=== PATIENT | female | born 1955 | race Caucasian/White ===

== ENCOUNTER 2024-02-15 07:24 | Inpatient (IN) | payer MEDICAID, OTHER ==
[~2024-02-15] VITALS: Ht 167.6 cm; Wt 95.5 kg
[~2024-02-15 07:24] MED LIST: LEVO25TA45
--- NOTE | 2024-02-15 07:33 | ECG ---
[facility] Test Date: 2024-02-15 Test Time: 07:29:23 Pat Name: CHASTITY PENA Department: ER Room: Gender: F Signal Operator: AKHIL : 1955 Requested By: MERCEDES BOSS Order Number: [id number] Reading MD: Branden Bradford Measurements Intervals [place] Rate: 53 P: 36 ND: 180 QRS: -62 QRSD: 92 T: 32 QT: 452 QTc: 425 Interpretive Statements Sinus rhythm Left anterior fascicular block Anterior infarct, old Electronically Signed On 02-15-2024 9:50:53 PDT by Branden Bradford Please click the below link to view image of tracing.
--- NOTE | 2024-02-15 07:34 | ED.PDOC ---
History of Present Illness HPI Comments 69Y F with PMHx thyroid disease and gastric bypass x20yrs ago presents to ED via EMS for chief complaint dizziness [id number] with vision changes. Pt states she has not moved much in 4 days and dizziness began today while showering. Pt says she "feels fuzzy". Pt is a poor historian. Per EMS, vital signs stable and BS 107 on scene. Pt denies taking HTN medications. 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 Family History Family History: Unknown Social History Smoker: Non-Smoker Alcohol: Denies ETOH Use Drugs: Denies Drug Use Lives In: Home Constitutional: denies: chills, diaphoresis, fatigue, fever, malaise, sweats, weakness, others EENTM: denies: blurred vision, double vision, ear bleeding, ear discharge, ear drainage, ear pain, ear ringing, eye pain, eye redness, hearing loss, mouth pain, mouth swelling, nasal discharge, nose bleeding, nose congestion, nose pain, photophobia, tearing, throat pain, throat swelling, voice changes, others Respiratory: denies: cough, hemoptysis, orthopnea, SOB at rest, shortness of breath, SOB with excertion, stridor, wheezing, others Cardiovascular: denies: chest pain, dizzy spells, diaphoresis, Dyspnea on exertion, edema, irregular heart beat, left arm pain, lightheadedness, palpitations, PND, syncope, others Gastrointestinal: denies: abdomen distended, abdominal pain, blood streaked bowels, constipated, diarrhea, dysphagia, difficulty swallowing, hematemesis, melena, nausea, poor appetite, poor fluid intake, rectal bleeding, rectal pain, vomiting, others Genitourinary: denies: abnormal vagina bleeding, burning, dyspareunia, dysuria, flank pain, frequency, hematuria, incontinence, pain, , vagina discharge, urgency, others Neurological: reports: dizziness; denies: fainting, headache, left sided numbness, left sided weakness, numbness, paresthesia, pre-existing deficit, right sided numbness, right sided weakness, seizure, speech problems, tingling, tremors, weakness, others Musculoskeletal: denies: back pain, gout, joint pain, joint swelling, muscle pain, muscle stiffness, neck pain, others Integumetry: denies: bruises, change in color, change in hair/nails, dryness, laceration, lesions, lumps, rash, wounds, others Allergic/Immunocompromised: denies: Difficulty Healing, Frequent Infections, Hives, Itching, others Hematologic/Lymphatic: denies: anemia, blood clots, easy bleeding, easy bruising, swollen glands, others Endocrine: denies: excessive hunger, excessive sweating, excessive thirst, excessive urination, flushing, intolerance to cold, intolerance to heat, unexplained weight gain, unexplained weight loss, others Psychiatric: denies: anxiety, bipolar disorder, depression, hopeless, panic disorder, schizophrenia, sleepless, suicidal, others All Other Systems: Reviewed and Negative Physical Exam General Appearance: Moderate Distress, Obese HEENT: Normal ENT Inspection, Pharynx Normal, TMs Normal Neck: Full Range of Motion, Non-Tender, Normal, Normal Inspection Respiratory: Chest Non-Tender, Lungs Clear, No Accessory Muscle Use, No Respiratory Distress, Normal Breath Sounds Cardiovascular: No Edema, No JVD, No Murmur, No Gallop, Normal Peripheral Pulses, Regular Rate/Rhythm Breast Exam: Deferred Gastrointestinal: No Organomegaly, Non Tender, No Pulsatile Mass, Normal Bowel Sounds, Soft Genitalia: Deferred Pelvic: Deferred Rectal: Deferred Extremities: No calf tenderness, Normal capillary refill, Normal inspection, Normal range of motion, Non-tender, No pedal edema Musculoskeletal : Apperance: Normal Neurologic: Alert, housekeeper nanny II-XII nml as Tested, No Motor Deficits, Normal Affect, Normal Mood, No Sensory Deficits Cerebellar Function: NOT DONE Reflexes: NOT DONE Skin: Dry, Normal Color, Warm Peripheral Pulses: 3+ Radial (R), 3+ Radial (L) Lymphatic: No Adenopathy Was a procedure done? Was a procedure done?: No Differential Dx Considerations may include: Autonomic disorder Electrolyte imbalance X-Ray, Labs, Meds, VS Vital Signs Date Time Temp Pulse Resp B/P (MAP) Pulse Ox O2 Delivery O2 Flow Rate FiO2 02/15/24 10:00 49 14 140/65 (90) 99 02/15/24 08:20 50 14 95 Room Air* 0 21 02/15/24 08:20 98.1 50 14 119/60 (79) 95 98.1 02/15/24 07:42 98.1 76 16 113/68 (83) 99 02/15/24 07:29 53 Lab Test 02/15/24 08:08 02/15/24 07:52 Range/Units White Blood Count 5.8 4.4-10.8 10^3/uL Red Blood Count 5.25 H 4.0-5.20 10^6/uL Hemoglobin 10.5 L 12.2-16.2 g/dL Hematocrit 35.6 L 36.0-46.0 % Mean Corpuscular Volume 67.8 L 80.0-100.0 fL Mean Corpuscular Hemoglobin 20.0 L 28.0-32.0 pg Mean Corpuscular Hemoglobin Concent 29.5 L 32.0-36.0 g/dL Red Cell Distribution Width 20.0 H 11.8-14.3 % Platelet Count 387 140-450 10^3/uL Mean Platelet Volume 8.1 6.9-10.8 fL Neutrophils (%) (Auto) 70.0 37.0-80.0 % Lymphocytes (%) (Auto) 22.5 10.0-50.0 % Monocytes (%) (Auto) 7.0 0.0-12.0 % Eosinophils (%) (Auto) 0.0 0.0-7.0 % Basophils (%) (Auto) 0.5 0.0-2.0 % Neutrophils # (Auto) 4.1 1.6-8.6 10 ^3/uL Lymphocytes # (Auto) 1.3 0.4-5.4 10 ^3/uL Monocytes # (Auto) 0.4 0-1.3 10 ^3/uL Eosinophils # (Auto) 0 0-0.8 10 ^3/uL Basophils # (Auto) 0 0-0.2 10 ^3/uL Nucleated Red Blood Cells 0.0 % Platelet Estimate Adequate Hypochromasia (manual) Marked Microcytosis Marked Sodium Level 143 136-145 mmol/L Potassium Level 3.9 3.5-5.1 mmol/L Chloride Level 108 H 98-107 mmol/L Carbon Dioxide Level 26 20-31 mmol/L Anion Gap 9 5-15 Blood Urea Nitrogen 12 9-23 mg/dL Creatinine 0.78 0.550-1.02 mg/dL Glomerular Filtration Rate Calc 82 >90 mL/min BUN/Creatinine Ratio 15.4 10.0-20.0 Serum Glucose 98 74-106 mg/dL Calcium Level 9.4 8.7-10.4 mg/dL Thyroid Stimulating Hormone (TSH) 20.67 H 0.55-4.78 uIU/mL Urine Color Light-orange Yellow Urine Clarity Turbid H Clear Urine pH 5.5 5.0-9.0 Urine Specific [place] 1.017 1.001-1.035 Urine Protein Trace H Negative Urine Ketones Negative Negative Urine Blood Negative Negative /uL Urine Nitrite 2+ H Negative Urine Bilirubin Negative Negative Urine Urobilinogen Normal Negative mg/dL Urine Leukocyte Esterase 3+ Negative /uL Urine RBC 4 0 - 4 /hpf Urine WBC 85 0 - 5 /hpf Urine Squamous Epithelial Cells Many <5 /hpf Urine Bacteria Few H None Seen /hpf Urine Mucus Few None Seen Urine Glucose Normal Normal mg/dL [place] [id number] Ph: [phone] DIAGNOSTIC IMAGING Diagnostic Imaging Report : [id number] Signed PATIENT: CHASTITY PENA ACCT: [id number] UNIT: [id number] : 1955 LOC: ER ROOM / BED: / AGE / SEX: 69 / F ADM STATUS: REG ER SERVICE [id number] ORDERING PHYSICIAN: MERCEDES BOSS MD PROCEDURE(s): HWOCT - HEAD WITHOUT CONTRAST REASON: tia ORDER NUMBER(s): [id number], ACCESSION NUMBER(s): [id number] EXAM: CT HEAD WITHOUT CONTRAST HISTORY: tia COMPARISON: None TECHNIQUE: Axial images were obtained and reformatted in coronal and sagittal planes. All CT scans at this medical facility are performed using dose modulation techniques as appropriate to a performed exam including the following: Automated exposure control was utilized; adjustment of the MA and/or KV according to patient size; and use of iterative reconstruction technique. CT Dose: CTDI volume is 55.14 mGy. Dose-length product is 976.43 mGy*cm FINDINGS: There is no evidence of acute intracranial hemorrhage, mass, mass effect midline shift. There is no hydrocephalus or extra-axial fluid collection. There are mild patchy hypodense areas in the supratentorial white matter likely related to chronic microvascular ischemic changes. Thompson-white matter differentiation is maintained.. The visualized paranasal sinuses and mastoid air cells are clear. The calvarium is intact. IMPRESSION: 1. No acute intracranial process. HS:Y ATED BY: YUNG ALONSO MD DICTATED DATE/TIME: 02/15/24 104 SIGNED BY: YUNG ALONSO MD SIGNED DATE/TIME: 02/15/24 104 CC: Patient alert. Complaining of dizziness. Vitals stable. Answering all questions. She is obese. EKG reviewed does not show any acute changes. Reviewed her previous visit for many years ago. Because of her age she will need further workup. Explained to the patient. Continue cardiac monitoring. Time of 1ST Reevaluation: 07:52 Reevaluation 1ST: Unchanged Patient Education/Counseling: Diagnosis, Treatment Family Education/Counseling: No Family Present Departure 1 Departure Time of Disposition: 07:37 Impression: Primary Impression: TIA (transient ischemic attack) Additional Impression: Autonomic disorder Disposition: 09 ADMITTED INPATIENT Admit to: Med Surg Condition: Guarded Critical Care Note Critical Care Time?: Yes (45 min-critical care time only) Stability Stability form required: No Heart Score Heart Score: Heart Score Response (Comments) Value History Slightly Suspicious 0 EKG Normal 0 Age >65 2 Risk Factors 1 or 2 risk factors 1 Troponin Normal limit 0 Total 3 I personally scribed for MERCEDES BOSS MD ([email or web address]) on 02/15/24 at 07:34. Electronically submitted by Sara Ayala ([employer]). I personally scribed for MERCEDES BOSS MD ([email or web address]) on 02/15/24 at 10:56. Electronically submitted by Sara Ayala ([employer]). MERCEDES BOSS MD Feb 15, 2024 07:34
[2024-02-15 08:20] VITALS: PULSE 50; RESP 14; O2SAT 95
[2024-02-15 08:28] LABS: Chloride 108 mmol/L (98-107); Potassium 3.9 mmol/L (3.5-5.1); Sodium 143 mmol/L (136-145)
[2024-02-15 08:29] LABS: Anion Gap 9 (5-15); Carbon Dioxide 26 mmol/L (20-31)
[2024-02-15 08:30] LABS: Calcium 9.4 mg/dL (8.7-10.4)
[2024-02-15 08:34] LABS: BUN/Creatinine Ratio 15.4 (10.0-20.0); Blood Urea Nitrogen 12 mg/dL (9-23); Glucose 98 mg/dL (74-106)
[2024-02-15 09:27] LABS: Basophils # (auto) 0 10 ^3/uL (0-0.2); Eosinophils # (auto) 0 10 ^3/uL (0-0.8); Hemoglobin 10.5 g/dL (12.2-16.2); Lymphocytes # (auto) 1.3 10 ^3/uL (0.4-5.4); Monocytes # (auto) 0.4 10 ^3/uL (0-1.3)
[2024-02-15 09:29] LABS: Basophils % (auto) 0.5 % (0.0-2.0); Hematocrit 35.6 % (36.0-46.0); Lymphocytes % (auto) 22.5 % (10.0-50.0); Mean Corpuscular Hgb Conc. 29.5 g/dL (32.0-36.0); Mean Corpuscular Volume 67.8 fL (80.0-100.0); Neutrophils # (auto) 4.1 10 ^3/uL (1.6-8.6); Platelet Count (auto) 387 10^3/uL (140-450); Red Blood Cells 5.25 10^6/uL (4.0-5.20); White Blood Cell 5.8 10^3/uL (4.4-10.8)
[2024-02-15 09:48] LABS: Hypochromia Marked; Platelet Estimate Adequate
[2024-02-15 09:57] LABS: Urine Bacteria FEW /hpf (None Seen); Urine Blood Negative /uL (Negative); Urine Clarity Turbid (Clear); Urine Color Light-Orange (Yellow); Urine Mucus FEW (None Seen); Urine Protein, UAD TRACE (Negative); Urine Specific Gravity 1.017 (1.001-1.035); Urine Urobilinogen Normal (Negative); Urine WBC 85 /hpf (0 - 5); Urine pH 5.5 (5.0-9.0)
--- NOTE | 2024-02-15 10:42 | DVH ---
EXAM: CT HEAD WITHOUT CONTRAST HISTORY: tia COMPARISON: None TECHNIQUE: Axial images were obtained and reformatted in coronal and sagittal planes. All CT scans at this medical facility are performed using dose modulation techniques as appropriate t o a performed exam including the following: Automated exposure control was utilized; adjustment of th e MA and/or KV according to patient size; and use of iterative reconstruction technique. CT Dose: CTDI volume is 55.14 mGy. Dose-length product is 976.43 mGy*cm FINDINGS: There is no evidence of acute intracranial hemorrhage, mass, mass effect midline shift. There is no h ydrocephalus or extra-axial fluid collection. There are mild patchy hypodense areas in the supratento rial white matter likely related to chronic microvascular ischemic changes. Thompson-white matter differe ntiation is maintained.. The visualized paranasal sinuses and mastoid air cells are clear. The calvarium is intact. IMPRESSION: 1. No acute intracranial process. HS:Y
[2024-02-15 11:57] LABS: Amphetamine Screen, Urine Neg (NEGATIVE)
[2024-02-15 11:58] LABS: Barbiturate Scree,Urine Neg (NEGATIVE); Benzodiazephine Screen, Urine Neg (NEGATIVE); Cannabinoid Screen, Urine Neg (NEGATIVE); Cocaine Screen, Urine Neg (NEGATIVE); Opiate Scree,Urine Neg (NEGATIVE); Phencyclidine Screen, Urine Neg (NEGATIVE)
[2024-02-15 12:26] LABS: COVID19 ANTIGEN SOFIA FIA NEGATIVE (NEGATIVE)
[2024-02-15 12:27] LABS: Rapid Influenza A Negative (Negative); Rapid Influenza B Negative (Negative)
[2024-02-15] MEDS ORDERED: ONDANSETRON HCL 4 MG/2 ML VIAL IV PRN (12:45)
[2024-02-15] MEDS ORDERED: MECLIZINE HCL 25 MG TAB PO PRN (12:45)
[2024-02-15] MEDS: THYROID 60 MG TAB PO SCH (13:41)
[2024-02-15] MEDS: cefTRIAXone 1GM/50ML D5W 50 ML IV SCH (13:47)
[2024-02-15] MEDS: SODIUM CHLORIDE 0.9% 1,000 ML IV ONE (13:47)
--- NOTE | 2024-02-15 13:57 | DVHHP2 ---
History of Present Illness Reason for Visit: Dizziness History of Present Illness 69-year-old female with history of thyroid disease, gastric bypass presented to the ED via EMS for chief complaint of dizziness and blurry vision during the dizziness. Patient states since she has not been feeling well, having muscle weakness, fatigue the last 4 days she has not been moving much and today while showering she felt dizzy. Patient is a poor historian, patient states she has many allergies to antibiotics and other medications but is not able to say exactly what the reaction is, patient tends to go off on a tangent and gets distracted while talking. Patient has tolerated Rocephin previously. Patient states she has not been taking any medications. Patient states that she stopped taking her thyroid medication, (Watkins thyroid), because she does not like the doctor who was prescribing them, and she also does not like taking medication. Patient states she has had bradycardia for many many years. Patient's flu and COVID were negative. Patient's urine did show she has a UTI. Patient's TSH was 20.67, restarted patient on Watkins thyroid. CT head was negative. Patient denies chest pain, headache, diaphoresis, shortness of breath, abdominal pain, no nausea, vomiting, fever, or chills endorsed by the patient. Patient was admitted for further evaluation medical management. Past Medical History Thyroid disease, gastric bypass, chronic fatigue syndrome Past Surgical History Gastric bypass Family History Reviewed noncontributory to the management of this case Smoke: No ALCOHOL: none Drugs: None Lives: with Family Review of Systems Constitutional: Yes: Malaise; No: Fever, Chills, Sweats, Weakness, Other Eyes: No: Pain, Vision change, Conjunctivae inflammation, Eyelid inflammation, Other, Redness ENT: No: Ear pain, Ear discharge, Nose pain, Nose discharge, Nose congestion, Mouth pain, Mouth swelling, Throat pain, Throat swelling, Other Respiratory: No: Cough, Dry, Shortness of breath, SOB with excertion, Wheezing, Hemoptysis, Pleuritic Pain, Sputum, Wheezing, Other Cardiovascular: Other (Dizziness); No: Chest Pain, Palpitations, Orthopnea, Paroxysmal Noc. Dyspnea, Edema, Lt Headedness Gastrointestinal: No: Nausea, Vomiting, Abdominal Pain, Diarrhea, Constipation, Melena, Hematochezia, Other Genitourinary: No Dysuria, No Frequency, No Incontinence, No Hematuria, No Retention, No Other Musculoskeletal: No: other, neck pain, shoulder pain, arm pain, back pain, hand pain, leg pain, foot pain Skin: No: Rash, Lesions, Jaundice, Bruising, Other Neurological: No: Weakness, Numbness, Incoordination, Change in speech, Confusion, Seizures, Other Allergies: Coded Allergies: Acetaminophen (Verified Allergy, Mild, 11/16/09) Hydrocodone (Verified Allergy, Mild, 11/16/09) Oxycodone (Verified Allergy, Mild, 11/16/09) Morphine (Verified Allergy, Unknown, 02/15/24) Medications Current Medications Medications Dose Ordered Sig/Amos Route Start Time Stop Time Status Last Admin Dose Admin Ondansetron HCl 4 mg Q4HP PRN IV 02/15/24 12:45 Meclizine HCl 12.5 mg [id number] PRN PO 02/15/24 12:45 Thyroid 120 mg QAM PO 02/15/24 13:30 Ceftriaxone Sodium 50 ml @ 100 mls/hr DAILY@09 IV 02/15/24 13:30 UNV Exam Vital Signs Vital Signs Date Time Temp Pulse Resp B/P (MAP) Pulse Ox O2 Delivery O2 Flow Rate FiO2 02/15/24 12:00 59 14 151/52 (85) 96 02/15/24 08:20 Room Air* 0 21 02/15/24 08:20 98.1 98.1 General Appearance: Alert, Oriented X3, Cooperative, No acute distress HEENT: Atraumatic, EOMI, Mucous membr. moist/pink Respiratory: Clear to auscultation, Normal air movement Cardiovascular: Regular rate, Normal S1, Normal S2, No murmurs Abdominal: Normal bowel sounds, Soft, No tenderness, No hepatospenomegaly, No masses Extremities: No clubbing, No cyanosis, No edema, Normal pulses, No tenderness/swelling Skin: No rashes, No breakdown, No significant lesion Neuro: Normal gait, Normal speech, Strength at 5/5 X4 ext, Normal tone, Sensation intact, Cranial nerves 3-12 NL, Reflexes 2+ Psych/Mental Status: Mental status NL, Mood NL Labs/Xrays Labs, imaging and ED notes reviewed Labs Test 02/15/24 10:51 02/15/24 10:06 02/15/24 08:08 02/15/24 07:52 Range/Units Influenza Type A Antigen Negative Negative Influenza Type B Antigen Negative Negative SARS-CoV-2 Antigen (Rapid) Negative NEGATIVE Urine Opiates Screen Neg NEGATIVE Urine Fentanyl Screen Neg NEGATIVE Urine Barbiturates Screen Neg NEGATIVE Urine Phencyclidine Screen Neg NEGATIVE Urine Amphetamines Screen Neg NEGATIVE Urine Benzodiazepines Screen Neg NEGATIVE Urine Cocaine Screen Neg NEGATIVE Urine Cannabinoids Screen Neg NEGATIVE White Blood Count 5.8 4.4-10.8 10^3/uL Red Blood Count 5.25 H 4.0-5.20 10^6/uL Hemoglobin 10.5 L 12.2-16.2 g/dL Hematocrit 35.6 L 36.0-46.0 % Mean Corpuscular Volume 67.8 L 80.0-100.0 fL Mean Corpuscular Hemoglobin 20.0 L 28.0-32.0 pg Mean Corpuscular Hemoglobin Concent 29.5 L 32.0-36.0 g/dL Red Cell Distribution Width 20.0 H 11.8-14.3 % Platelet Count 387 140-450 10^3/uL Mean Platelet Volume 8.1 6.9-10.8 fL Neutrophils (%) (Auto) 70.0 37.0-80.0 % Lymphocytes (%) (Auto) 22.5 10.0-50.0 % Monocytes (%) (Auto) 7.0 0.0-12.0 % Eosinophils (%) (Auto) 0.0 0.0-7.0 % Basophils (%) (Auto) 0.5 0.0-2.0 % Neutrophils # (Auto) 4.1 1.6-8.6 10 ^3/uL Lymphocytes # (Auto) 1.3 0.4-5.4 10 ^3/uL Monocytes # (Auto) 0.4 0-1.3 10 ^3/uL Eosinophils # (Auto) 0 0-0.8 10 ^3/uL Basophils # (Auto) 0 0-0.2 10 ^3/uL Nucleated Red Blood Cells 0.0 % Platelet Estimate Adequate Hypochromasia (manual) Marked Microcytosis Marked Sodium Level 143 136-145 mmol/L Potassium Level 3.9 3.5-5.1 mmol/L Chloride Level 108 H 98-107 mmol/L Carbon Dioxide Level 26 20-31 mmol/L Anion Gap 9 5-15 Blood Urea Nitrogen 12 9-23 mg/dL Creatinine 0.78 0.550-1.02 mg/dL Glomerular Filtration Rate Calc 82 >90 mL/min BUN/Creatinine Ratio 15.4 10.0-20.0 Serum Glucose 98 74-106 mg/dL Calcium Level 9.4 8.7-10.4 mg/dL Thyroid Stimulating Hormone (TSH) 20.67 H 0.55-4.78 uIU/mL Urine Color Light-orange Yellow Urine Clarity Turbid H Clear Urine pH 5.5 5.0-9.0 Urine Specific [place] 1.017 1.001-1.035 Urine Protein Trace H Negative Urine Ketones Negative Negative Urine Blood Negative Negative /uL Urine Nitrite 2+ H Negative Urine Bilirubin Negative Negative Urine Urobilinogen Normal Negative mg/dL Urine Leukocyte Esterase 3+ Negative /uL Urine RBC 4 0 - 4 /hpf Urine WBC 85 0 - 5 /hpf Urine Squamous Epithelial Cells Many <5 /hpf Urine Bacteria Few H None Seen /hpf Urine Mucus Few None Seen Urine Glucose Normal Normal mg/dL Assessment/Plan Assessment/Plan Bradycardia, symptomatic Admit to telemetry Consult cardiology Patient may also need outpatient sleep study, patient states her heart rate was dropping to the 30s in October when she was hospitalized [facility]. Hypothyroidism TSH 20.67 Restart Watkins thyroid Patient will need outpatient follow up to titrate dose up T3 and T4 pending UTI Started antibiotics Encourage hydration FEN/PPX GI prophylaxis not indicated VTE prophylaxis not indicated Regular diet IV fluids x1 L Plan discussed with: Patient My Orders Orders - ABDIRASHID GANDHI Procedure Category Date Status Time Admit ADMIT 02/15/24 Transmitted 12:43 Code Status CODE 02/15/24 Transmitted 12:43 Vital Signs DOMINIC 02/15/24 In Process 12:43 Review Orders With DOMINIC 02/15/24 In Process Adm. 12:43 Bedside Commode DOMINIC 02/15/24 In Process 12:43 Regular Diet DIET 02/15/24 Transmitted Lunch Notify Of Changes DOMINIC 02/15/24 In Process From Base 12:43 Advance Directive DOMINIC 02/15/24 In Process 12:43 Basic Metabolic Panel LAB 02/16/24 Verified 04:00 Complete Blood Count LAB 02/16/24 Verified 04:00 Patient Condition ORDERS 02/15/24 Transmitted 12:43 Allergies DOMINIC 02/15/24 In Process 12:43 Ondansetron Hcl PHA 02/15/24 In Process (Zofran) 12:45 Meclizine Tablet PHA 02/15/24 In Process (Antivert Tablet) 12:45 Thyroid (Watkins PHA 02/15/24 In Process Thyroid) 13:30 Free T3 LAB 02/15/24 In Process 13:28 Free T4 (Free LAB 02/15/24 In Process Thyroxine) 13:28 Ceftriaxone 1gm/50ml PHA 02/15/24 In Process D5w (Rocephin) 13:30 Sodium Chloride 0.9% PHA 02/15/24 In Process 13:30 Date of Service: Feb 15, 2024 Billing Provider: ABDIRASHID GANDHI Common Visit Codes: [id number] INP/OBS CARE (HIGH) ABDIRASHID GANDHI Feb 15, 2024 13:57
[2024-02-15 14:01] LABS: Free T3 2.86 pg/mL (2.3-4.2)
[2024-02-15 14:02] LABS: Free T4 (Free Thyroxine) 0.74 ng/dL (0.89-1.76)
--- NOTE | 2024-02-15 14:23 | DVH ---
CHEST RADIOGRAPH Indication:Shortness of breath Technique: Single frontal view of the chest was obtained COMPARISON: None FINDINGS: Lines and Tubes: None Lungs: Clear Pleura: No effusion. No pneumothorax. Cardiomediastinal contours: Unremarkable Bones: Unremarkable IMPRESSION: No acute disease.
[2024-02-15 15:41] LABS: Magnesium 2.1 mg/dL (1.6-2.6)
[2024-02-15 16:00] VITALS: BP 170/64; PULSE 49; RESP 18; TEMP 98.4; O2SAT 98
[2024-02-15] MEDS ORDERED: INFLUENZA TRIVALENT 2024-2025 0.5 ML INJ IM ONE (16:30)
[2024-02-15] MEDS ORDERED: hydrALAZINE HCL 20 MG/ML VL IV PRN (17:00)
--- NOTE | 2024-02-15 17:16 | DVHINCON2 ---
Date Seen: Feb 15, 2024 Referring Physician AKHIL Yan Reason for Consultation Symptomatic bradycardia History of Present Illness This is a 69-year-old female who presented to the emergency room via EMS with a chief complaint of dizziness today. The patient reports she was taking a shower at the onset of dizziness prompting her to call 911. Denies headache, blurry vision, or unilateral weakness. Denies chest pain, palpitations, diaphoresis, shortness of breath, or syncopal events. She underwent a 12 lead electrocardiogram revealing a sinus bradycardia rhythm with an associated left anterior fascicular block. There are no evidence of atrioventricular blocks. She has had a sustained sinus bradycardia rhythm during admission with the patient stating she has chronic asymptomatic bradycardia for the past 20 years. She was also found with a TSH level >20 uIU/mL stating she stopped taking her thyroid medication ([place]) approximately six months ago. Patient also reports a history of UTIs causing dizziness in the past. Reports decreased fluid intake during the past couple of weeks. Significant medical history includes chronic fatigue syndrome, Raynaud's disease, thyroid disease, mitral valve prolapse, UTIs, and morbid obesity. Past Medical History Past medical history reviewed. No other significant than mentioned above. Past Surgical History Gastric bypass, 2004 Tonsillectomy Adenectomy Family History: FH: obesity G8 FATHER Family History Family history reviewed. Social History Denies the use of illicit drugs, alcohol, or tobacco use. Allergies: Coded Allergies: Acetaminophen (Verified Allergy, Mild, 11/16/09) Hydrocodone (Verified Allergy, Mild, 11/16/09) Oxycodone (Verified Allergy, Mild, 11/16/09) Morphine (Verified Allergy, Unknown, 02/15/24) Home Meds Unable to Obtain Active Prescriptions or Reported Meds Home Meds Home medications reviewed. Current Medications Current Medications Medications (Trade) Dose Ordered Sig/Amos Route PRN Reason Start Time Stop Time Status Last Admin Ondansetron HCl (Zofran) 4 mg Q4HP PRN IV NAUSEA / VOMITING 02/15/24 12:45 Meclizine HCl (Antivert Tablet) 12.5 mg [id number] PRN PO DIZZINESS 02/15/24 12:45 Thyroid ([place] Thyroid) 120 mg QAM PO 02/15/24 13:30 02/15/24 13:52 DC 02/15/24 13:41 Ceftriaxone Sodium 50 ml @ 100 mls/hr DAILY@09 IV 02/15/24 13:30 02/15/24 13:47 Thyroid ([place] Thyroid) 30 mg QAM PO 02/16/24 07:00 Review of Systems Constitutional: No symptom reported Ears, Nose, & Throat: No symptom reported Eyes: No symptom reported Neurological: Dizziness Pulmonary/Respiratory: No symptom reported Cardiovascular: No symptom reported Gastrointestinal: No symptom reported Genitourinary: No symptom reported Musculoskeletal: No symptom reported Skin: No symptom reported Psychiatric: No symptom reported Endocrine: No symptom reported Hemotologic/Lymphatic: No symptom reported Vital Signs Vital Signs Date Time Temp Pulse Resp B/P (MAP) Pulse Ox O2 Delivery O2 Flow Rate FiO2 02/15/24 15:30 Room Air* 0 21 02/15/24 12:00 59 14 151/52 (85) 96 02/15/24 08:20 98.1 98.1 Physical Exam General Appearance: Cooperative. Well developed. Morbidly obese. In no acute distress Head Exam: Normal inspection Neck Exam: Normal inspection. Non-tender. Normal alignment Pulmonary/Respiratory: Chest non-tender. Clear bilateral breath sounds Cardiovascular/Chest: Regular rate and rhythm. S1, S2. Sinus bradycardia with LAFB. No murmurs. No JVD. Peripheral Pulses: 2+ Radial (R). 2+ Radial (L). 2+ Pedal (R). 2+ Pedal (L) Abdominal Exam: Normal bowel sounds. Soft. Nontender. No hepatospenomegaly. No masses Ankle Exam: Negative ankle edema Lower extremities: Negative lower extremity edema Neuro/Mental Status: A&O x4. Coherent Thoughts/Psych: Normal thought pattern. Appropriate mood and affect. Good judgement and insight Appearance: In no acute distress Skin Exam: Normal inspection. Normal color. Warm. Dry Labs/Diagnostic Data Labs Test 02/15/24 10:51 02/15/24 10:06 02/15/24 08:08 02/15/24 07:52 Range/Units Influenza Type A Antigen Negative Negative Influenza Type B Antigen Negative Negative SARS-CoV-2 Antigen (Rapid) Negative NEGATIVE Urine Opiates Screen Neg NEGATIVE Urine Fentanyl Screen Neg NEGATIVE Urine Barbiturates Screen Neg NEGATIVE Urine Phencyclidine Screen Neg NEGATIVE Urine Amphetamines Screen Neg NEGATIVE Urine Benzodiazepines Screen Neg NEGATIVE Urine Cocaine Screen Neg NEGATIVE Urine Cannabinoids Screen Neg NEGATIVE White Blood Count 5.8 4.4-10.8 10^3/uL Red Blood Count 5.25 H 4.0-5.20 10^6/uL Hemoglobin 10.5 L 12.2-16.2 g/dL Hematocrit 35.6 L 36.0-46.0 % Mean Corpuscular Volume 67.8 L 80.0-100.0 fL Mean Corpuscular Hemoglobin 20.0 L 28.0-32.0 pg Mean Corpuscular Hemoglobin Concent 29.5 L 32.0-36.0 g/dL Red Cell Distribution Width 20.0 H 11.8-14.3 % Platelet Count 387 140-450 10^3/uL Mean Platelet Volume 8.1 6.9-10.8 fL Neutrophils (%) (Auto) 70.0 37.0-80.0 % Lymphocytes (%) (Auto) 22.5 10.0-50.0 % Monocytes (%) (Auto) 7.0 0.0-12.0 % Eosinophils (%) (Auto) 0.0 0.0-7.0 % Basophils (%) (Auto) 0.5 0.0-2.0 % Neutrophils # (Auto) 4.1 1.6-8.6 10 ^3/uL Lymphocytes # (Auto) 1.3 0.4-5.4 10 ^3/uL Monocytes # (Auto) 0.4 0-1.3 10 ^3/uL Eosinophils # (Auto) 0 0-0.8 10 ^3/uL Basophils # (Auto) 0 0-0.2 10 ^3/uL Nucleated Red Blood Cells 0.0 % Platelet Estimate Adequate Hypochromasia (manual) Marked Microcytosis Marked Sodium Level 143 136-145 mmol/L Potassium Level 3.9 3.5-5.1 mmol/L Chloride Level 108 H 98-107 mmol/L Carbon Dioxide Level 26 20-31 mmol/L Anion Gap 9 5-15 Blood Urea Nitrogen 12 9-23 mg/dL Creatinine 0.78 0.550-1.02 mg/dL Glomerular Filtration Rate Calc 82 >90 mL/min BUN/Creatinine Ratio 15.4 10.0-20.0 Serum Glucose 98 74-106 mg/dL Hemoglobin A1c 5.1 <5.7 % A1C Calcium Level 9.4 8.7-10.4 mg/dL Magnesium Level 2.1 1.6-2.6 mg/dL B-Type Natriuretic Peptide 41.51 0-100 pg/mL Triglycerides Level 91 < 150 mg/dL Cholesterol Level 181 < 200 mg/dL LDL Cholesterol 117 H < 100 mg/dL HDL Cholesterol 54 40-59 mg/dL Thyroid Stimulating Hormone (TSH) 20.67 H 0.55-4.78 uIU/mL Free Thyroxine (T4) Calculated 0.74 L 0.89-1.76 ng/dL Free Triiodothyronine (T3) pg/mL 2.86 2.3-4.2 pg/mL Urine Color Light-orange Yellow Urine Clarity Turbid H Clear Urine pH 5.5 5.0-9.0 Urine Specific [place] 1.017 1.001-1.035 Urine Protein Trace H Negative Urine Ketones Negative Negative Urine Blood Negative Negative /uL Urine Nitrite 2+ H Negative Urine Bilirubin Negative Negative Urine Urobilinogen Normal Negative mg/dL Urine Leukocyte Esterase 3+ Negative /uL Urine RBC 4 0 - 4 /hpf Urine WBC 85 0 - 5 /hpf Urine Squamous Epithelial Cells Many <5 /hpf Urine Bacteria Few H None Seen /hpf Urine Mucus Few None Seen Urine Glucose Normal Normal mg/dL Assessment Dizziness in the setting of uncontrolled hypothyroidism/UTI Chronic asymptomatic bradycardia Rule out structural heart disease Hx mitral valve prolapse Medical noncompliance Suboptimal medical therapy Morbid obesity UTI Plan/Recommendation (Dr. Haley) Dizziness likely secondary to uncontrolled hypothyroidism and UTI. The patient reports chronic asymptomatic bradycardia for over 20 years. Doubt bradycardia as the culprit of symptoms. We will continue further cardiac evaluation with a transthoracic echocardiogram to rule out structural heart disease, bilateral carotid duplex, and orthostatic vital signs. In the setting of unremarkable results, there is no further cardiac workup indicated at this time. Continue ABX therapy and thyroid management per primary care team. Thank you for allowing us to participate in this patient's care. Please call if you have any questions or concerns. This medical document was created using an electronic medical record system with voice recognition software and computerized dictation system. Although this document has been carefully reviewed, there might still be some phonetic and typographical errors. Occasional wrong-word or ``sound-alike substitutions may have occurred due to the inherent limitations of voice recognition software. These areas are purely typographical due to imperfections of the software programs and do not reflect any compromise in the patient's medical care. Please read the chart carefully and recognize, using context, where these substitutions have occurred. Plan discussed with: Patient, Other Date of Service: Feb 15, 2024 Billing Provider: MARCELINO HALEY MD Cardiology Common Codes: [id number] INP/OBS CARE (High) SAURABH [employer] Feb 15, 2024 17:16
--- NOTE | 2024-02-15 17:53 | DVH ---
Carotid Duplex Date: 02/15/2024 05:05 PM Clinical History: Dizziness Comparison: None Technique: Duplex Doppler evaluation of the extracranial carotid and vertebral arteries including color Doppler and spectral/pulsed waveform analysis was performed. Findings: RIGHT SIDE: The peak systolic velocities are 66 cm/s in the distal CCA and 131 cm/s in the proximal ICA.The ICA/C CA ratio is 2. The external carotid artery is patent with peak systolic velocity of 87 cm/s proximally. There is appropriate antegrade flow in the right vertebral artery. LEFT SIDE: The peak systolic velocities are 82 cm/s in the distal CCA and 96 cm/s in the proximal ICA.. The ICA /CCA ratio is less than 2. The external carotid artery is patent with peak systolic velocity of 71 cm/s proximally. There is appropriate antegrade flow in the left vertebral artery. IMPRESSION: 1. 50-69% stenosis at the level of the right proximal ICA. 2. No hemodynamically significant stenosis noted in the left carotid system. 3. Reference: Radiology 2003; 229:[id number] HS:Y
[2024-02-15] MEDS: ENOXAPARIN SOD 40 MG/0.4 ML SYRINGE SC SCH (18:00)
[2024-02-15 18:30] VITALS: BP 135/63; PULSE 49
[2024-02-15 20:00] VITALS: PULSE 47; PULSE 69; RESP 18; O2SAT 97
[2024-02-15 21:00] VITALS: BP 100/50; PULSE 69; RESP 18; TEMP 97.8; O2SAT 97
[2024-02-16] VITALS (8 sets, daily range): BP systolic 0–172; BP diastolic 52–84; PULSE 48–83; RESP 16–18; TEMP 97.5–98.4; O2SAT 88–100
[2024-02-16 07:12] LABS: Basophils # (auto) 0 10 ^3/uL (0-0.2); Eosinophils # (auto) 0 10 ^3/uL (0-0.8); Red Cell Distribution Width 19.7 % (11.8-14.3)
[2024-02-16 07:14] LABS: Basophils % (auto) 0.6 % (0.0-2.0); Eosinophils % (auto) 0.1 % (0.0-7.0); Hematocrit 32.8 % (36.0-46.0); Hemoglobin 9.7 g/dL (12.2-16.2); Lymphocytes # (auto) 2.2 10 ^3/uL (0.4-5.4); Lymphocytes % (auto) 35.7 % (10.0-50.0); Mean Corpuscular Hemoglobin 20.6 pg (28.0-32.0); Mean Corpuscular Hgb Conc. 29.7 g/dL (32.0-36.0); Mean Corpuscular Volume 69.5 fL (80.0-100.0); Monocytes # (auto) 0.7 10 ^3/uL (0-1.3); Monocytes % (auto) 10.8 % (0.0-12.0); Neutrophils # (auto) 3.3 10 ^3/uL (1.6-8.6); Neutrophils % (auto) 52.8 % (37.0-80.0); Nucleated Red Blood Cells % 0.4 %; Platelet Count (auto) 277 10^3/uL (140-450); Red Blood Cells 4.72 10^6/uL (4.0-5.20); White Blood Cell 6.3 10^3/uL (4.4-10.8)
[2024-02-16 07:20] LABS: Chloride 112 mmol/L (98-107); Potassium 4.2 mmol/L (3.5-5.1); Sodium 143 mmol/L (136-145)
[2024-02-16 07:21] LABS: Anion Gap 5 (5-15); Carbon Dioxide 26 mmol/L (20-31)
[2024-02-16] MEDS: THYROID 60 MG TAB PO SCH (07:25)
[2024-02-16 07:26] LABS: BUN/Creatinine Ratio 18.9 (10.0-20.0); Blood Urea Nitrogen 14 mg/dL (9-23); Glucose 93 mg/dL (74-106)
[2024-02-16 08:27] LABS: Hypochromia Marked; Platelet Estimate Adequate
--- NOTE | 2024-02-16 13:33 | DVHSR ---
APPROVED REPORT EXAM: LIMITED Two-dimensional and M-mode echocardiogram with Doppler and color Doppler. Blood Pressure: 151/55 mmHg INDICATION Dizziness/bradycardia RISK FACTORS Obesity: Height: 5' 6", Weight: 200 DIMENSIONS LVDd4.3 (3.8-5.7cm)LA (2D)3.8 (1.9-4.0cm)Aortic Root2.7 (2.0-3.7cm) LVDs2.4 (2.5-4.0cm)LA (MM) (1.9-4.0cm)Aortic Cusp Exc1.5 (1.5-2.0cm) EF (%) 70.0 (55-70%)Rt. Atrium3.1 (1.9-4.0cm)Asc. Aorta cm IVSd0.9 (0.7-1.1cm)RV (D) (1.8-2.4cm) PWd1.0 (0.7-1.1cm) Mitral Valve MitralMitral Stenosis E wave0.80m/sMV Mean GR.mmHg A wave0.90m/sMV Peak GR.mmHg E/A ratio0.92D MVAcm2 Aortic Valve Aortic ValveAortic Stenosis V11.50m/Angie Mean GR.6mmHg V21.70m/Angie Peak GR.12mmHg LVOT Diameter1.9 (1.8-2.4cm)Doppler AVA2.50cm2 AI P 1/2 Ubpd143.48ms Other Information Quality : Technically LimitedRhythm : Technically limited study due to body habitus. Conclusion Normal left ventricular size and dimension. Normal left ventricular systolic function estimated ejec tion fraction 55%. there is a grade 1 diastolic dysfunction. Normal right ventricular size and dimension. Normal right ventricular systolic function. Normal biatrial size and dimension. Normal aortic valve structure and function. Normal mitral valve structure and function. Normal tricuspid valve structure and function. The pulmonary valve is grossly normal. No pericardial effusion.
--- NOTE | 2024-02-16 13:55 | DVHPN2 ---
Subjective The patient is seen and examined at bedside. No complaint today. Reviewed: Care Plan, H&P, Labs, Medications, Previous Orders, Radiology Changes from previous H/P or p: No Changes Eyes: No Pain, No Vision change, No Conjunctivae inflammation, No Eyelid inflammation, No Other, No Redness ENT: No Ear pain, No Ear discharge, No Nose pain, No Nose discharge, No Nose congestion, No Mouth pain, No Mouth swelling, No Throat pain, No Throat swelling, No Other Cardiovascular: No Chest Pain, No Palpitations, No Orthopnea, No Paroxysmal Noc. Dyspnea, No Edema, No Lt Headedness; Other (Dizziness) Respiratory: No Cough, No Dry, No Shortness of breath, No SOB with excertion, No Wheezing, No Hemoptysis, No Pleuritic Pain, No Sputum, No Other Gastrointestinal: No Nausea, No Vomiting, No Abdominal Pain, No Diarrhea, No Constipation, No Melena, No Hematochezia, No Other Genitourinary: No Dysuria, No Frequency, No Incontinence, No Hematuria, No Retention, No Other Musculoskeletal: No other, No neck pain, No shoulder pain, No arm pain, No back pain, No hand pain, No leg pain, No foot pain Skin: No Rash, No Lesions, No Jaundice, No Bruising, No Other Objective Vitals Vital Signs Date Time Temp Pulse Resp B/P (MAP) Pulse Ox O2 Delivery O2 Flow Rate FiO2 02/16/24 12:12 52 16 140/60 (86) 56 119/75 (90) 69 116/65 (82) 65 117/60 (79) 02/16/24 08:00 Room Air* 0 21 02/16/24 05:00 97.5 88 97.5 Intake/Output Intake and Output 02/16/24 07:00 Intake Total 1100 ml Balance 1100 ml Intake Oral 300 ml IV Total 800 ml # Voids 5 # Bowel Movements 1 General Appearance: Alert, Oriented X3, Cooperative, No acute distress HEENT: Atraumatic, PERRLA, EOMI, Mucous membr. moist/pink Neck: Supple Lungs: Clear to auscultation, Normal air movement Cardiovascular: Regular rate, Normal S1, Normal S2, No murmurs, Gallops, Rubs Abdomen: Normal bowel sounds, Soft, No tenderness Neuro: Cranial nerves 3-12 NL Psych/Mental Status: Mental status NL Medications Current Medications Medications Dose Ordered Sig/Amos Route Start Time Stop Time Status Last Admin Dose Admin Ondansetron HCl 4 mg Q4HP PRN IV 02/15/24 12:45 Meclizine HCl 12.5 mg [id number] PRN PO 02/15/24 12:45 Ceftriaxone Sodium 50 ml @ 100 mls/hr DAILY@09 IV 02/15/24 13:30 02/16/24 08:41 100 MLS/HR Thyroid 30 mg QAM PO 02/16/24 07:00 02/16/24 07:25 30 MG Enoxaparin Sodium 40 mg DAILY@1800 SC 02/15/24 18:00 02/15/24 18:00 40 MG Hydralazine HCl 10 mg Q6HP PRN IV 02/15/24 17:00 Laboratory Results Laboratory Tests 02/16/24 06:39 Chemistry Test 02/16/24 06:39 Calcium Level 9.0 mg/dL (8.7-10.4) Urinalysis Test 02/15/24 07:52 Urine Color Light-orange (Yellow) Urine Clarity Turbid (Clear) H Urine pH 5.5 (5.0-9.0) Urine Specific [place] 1.017 (1.001-1.035) Urine Protein Trace (Negative) H Urine Ketones Negative (Negative) Urine Blood Negative /uL (Negative) Urine Nitrite 2+ (Negative) H Urine Bilirubin Negative (Negative) Urine Urobilinogen Normal mg/dL (Negative) Urine Leukocyte Esterase 3+ /uL (Negative) Urine RBC 4 /hpf (0 - 4) Urine WBC 85 /hpf (0 - 5) Urine Squamous Epithelial Cells Many /hpf (<5) Urine Bacteria Few /hpf (None Seen) H Urine Mucus Few (None Seen) Urine Glucose Normal mg/dL (Normal) Labs and/or images reviewed: Labs reviewed by me Assessment/Plan Assessment/Plan Bradycardia, symptomatic Hypothyroidism UTI Continuing current management. 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 Regarding to her hypothyroidism we will restart her on armour thyroid. The patient will need to follow up outpatient to titrate the dosage. Waiting for T3 and T4. Continuing IV antibiotics. Plan discussed with: Patient Date of Service: Feb 16, 2024 Billing Provider: LUIS LIMON MD Common Visit Codes: [id number] INP/OBS CARE(HIGH) LUIS LIMON MD Feb 16, 2024 13:55
--- NOTE | 2024-02-16 15:27 | DVHPN2 ---
Consult Progress Note Subjective Patient reports: Feels better Review of Systems: NEURO:Normal (minor light headedness) Objective vital signs Vital Sign Date Time Temp Pulse Resp B/P (MAP) Pulse Ox O2 Delivery O2 Flow Rate FiO2 02/16/24 13:00 98.4 62 16 128/84 (99) 100 98.4 02/16/24 08:00 Room Air* 0 21 Total Intake and Output 02/15/24 02/15/24 02/16/24 15:00 23:00 07:00 Intake Total 50 ml 750 ml 300 ml Balance 50 ml 750 ml 300 ml medications Current Medications Medications Dose Ordered Sig/Amos Route Start Time Stop Time Status Last Admin Dose Admin Ondansetron HCl 4 mg Q4HP PRN IV 02/15/24 12:45 Meclizine HCl 12.5 mg [id number] PRN PO 02/15/24 12:45 Ceftriaxone Sodium 50 ml @ 100 mls/hr DAILY@09 IV 02/15/24 13:30 02/16/24 08:41 100 MLS/HR Thyroid 30 mg QAM PO 02/16/24 07:00 02/16/24 07:25 30 MG Enoxaparin Sodium 40 mg DAILY@1800 SC 02/15/24 18:00 02/15/24 18:00 40 MG Hydralazine HCl 10 mg Q6HP PRN IV 02/15/24 17:00 laboratory and microbiology Laboratory Tests 02/16/24 06:39 Test 02/16/24 06:39 Range/Units Serum Glucose 93 74-106 mg/dL Problem List/Assessment/Plan Problem List/Assessment/Plan Assessment Dizziness in the setting of uncontrolled hypothyroidism/UTI Chronic asymptomatic bradycardia Rule out structural heart disease Hx mitral valve prolapse Medical noncompliance Suboptimal medical therapy Morbid obesity UTI Plan/Recommendation (Dr. Pierre) Dizziness likely secondary to uncontrolled hypothyroidism and UTI. The patient reports chronic asymptomatic bradycardia for over 20 years. Doubt bradycardia as the culprit of symptoms. Echo with normal EF, no significant valvular structural abnormalities noted. Bilateral carotid duplex showing 50-69% stenosis right proximal ICA, recommend aspirin and statin. Negative orthostatic vital signs. Continue ABX therapy and thyroid management per primary care team. Thank you for allowing us to participate in this patient's care. Case discussed and plan coordinated with Dr. Pierre. Please call if you have any questions or concerns. will sign off This medical document was created using an electronic medical record system with voice recognition software and computerized dictation system. Although this document has been carefully reviewed, there might still be some phonetic and typographical errors. Occasional wrong-word or ``sound-alike substitutions may have occurred due to the inherent limitations of voice recognition software. These areas are purely typographical due to imperfections of the software programs and do not reflect any compromise in the patient's medical care. Please read the chart carefully and recognize, using context, where these substitutions have occurred. Plan discussed with: Patient, Other Plan discussed with: Patient Date of Service: Feb 16, 2024 Billing Provider: MARCELINO PIERRE MD Common Visit Codes: [id number] INP/OBS CARE(HIGH) EDGARD SILVESTRE [facility] Feb 16, 2024 15:27
[2024-02-17] VITALS (8 sets, daily range): BP systolic 0–146; BP diastolic 55–83; PULSE 17–72; RESP 17–95; TEMP 96.8–98.4; O2SAT 90–100
[2024-02-17] MEDS ORDERED: THYR60TA PO (08:01)
--- NOTE | 2024-02-17 13:35 | DVHPN2 ---
Subjective The patient is seen and examined at bedside. Today the patient feels dizzy. Heart rate is low in between 30-50 Reviewed: Care Plan, H&P, Labs, Medications, Previous Orders, Radiology Changes from previous H/P or p: No Changes Eyes: No Pain, No Vision change, No Conjunctivae inflammation, No Eyelid inflammation, No Other, No Redness ENT: No Ear pain, No Ear discharge, No Nose pain, No Nose discharge, No Nose congestion, No Mouth pain, No Mouth swelling, No Throat pain, No Throat swelling, No Other Cardiovascular: No Chest Pain, No Palpitations, No Orthopnea, No Paroxysmal Noc. Dyspnea, No Edema, No Lt Headedness; Other (Dizziness) Respiratory: No Cough, No Dry, No Shortness of breath, No SOB with excertion, No Wheezing, No Hemoptysis, No Pleuritic Pain, No Sputum, No Other Gastrointestinal: No Nausea, No Vomiting, No Abdominal Pain, No Diarrhea, No Constipation, No Melena, No Hematochezia, No Other Genitourinary: No Dysuria, No Frequency, No Incontinence, No Hematuria, No Retention, No Other Musculoskeletal: No other, No neck pain, No shoulder pain, No arm pain, No back pain, No hand pain, No leg pain, No foot pain Skin: No Rash, No Lesions, No Jaundice, No Bruising, No Other Objective Vitals Vital Signs Date Time Temp Pulse Resp B/P (MAP) Pulse Ox O2 Delivery O2 Flow Rate FiO2 02/17/24 09:00 96.8 56 95 99/61 (74) 95 96.8 02/16/24 08:00 Room Air* 0 21 Intake/Output Intake and Output 02/17/24 07:00 Intake Total 1975 ml Output Total 700 ml Balance 1275 ml Intake Oral 1925 ml IV Total 50 ml Output Urine Total 700 ml # Voids 2 General Appearance: Alert, Oriented X3, Cooperative, No acute distress HEENT: Atraumatic, PERRLA, EOMI, Mucous membr. moist/pink Neck: Supple Lungs: Clear to auscultation, Normal air movement Cardiovascular: Regular rate, Normal S1, Normal S2, No murmurs, Gallops, Rubs Abdomen: Normal bowel sounds, Soft, No tenderness Neuro: Cranial nerves 3-12 NL Psych/Mental Status: Mental status NL Medications Current Medications Medications Dose Ordered Sig/Amos Route Start Time Stop Time Status Last Admin Dose Admin Ondansetron HCl 4 mg Q4HP PRN IV 02/15/24 12:45 Meclizine HCl 12.5 mg [id number] PRN PO 02/15/24 12:45 Ceftriaxone Sodium 50 ml @ 100 mls/hr DAILY@09 IV 02/15/24 13:30 02/16/24 08:41 100 MLS/HR Thyroid 30 mg QAM PO 02/16/24 07:00 02/17/24 06:45 30 MG Enoxaparin Sodium 40 mg DAILY@1800 SC 02/15/24 18:00 02/16/24 17:51 40 MG Hydralazine HCl 10 mg Q6HP PRN IV 02/15/24 17:00 Laboratory Results Laboratory Tests 02/16/24 06:39 Urinalysis Test 02/15/24 07:52 Urine Color Light-orange (Yellow) Urine Clarity Turbid (Clear) H Urine pH 5.5 (5.0-9.0) Urine Specific [place] 1.017 (1.001-1.035) Urine Protein Trace (Negative) H Urine Ketones Negative (Negative) Urine Blood Negative /uL (Negative) Urine Nitrite 2+ (Negative) H Urine Bilirubin Negative (Negative) Urine Urobilinogen Normal mg/dL (Negative) Urine Leukocyte Esterase 3+ /uL (Negative) Urine RBC 4 /hpf (0 - 4) Urine WBC 85 /hpf (0 - 5) Urine Squamous Epithelial Cells Many /hpf (<5) Urine Bacteria Few /hpf (None Seen) H Urine Mucus Few (None Seen) Urine Glucose Normal mg/dL (Normal) Labs and/or images reviewed: Labs reviewed by me Assessment/Plan Assessment/Plan Bradycardia, symptomatic Hypothyroidism UTI Continuing current management. Per line puller's her bradycardia due to her severe hypothyroidism. Continuing to monitor her heart rate. Regarding to her hypothyroidism we will restart her on armour thyroid. I will increase the dosage to 120 mg per day. Patient said that is how much she take at home however she ran out of her medication for three months. She had not take her medication for three months. The patient will need to follow up outpatient to titrate the dosage. Continuing IV antibiotics. Plan discussed with: Patient Date of Service: Feb 17, 2024 Billing Provider: LUIS LIMON MD Common Visit Codes: [id number] INP/OBS CARE(HIGH) LUIS LIMON MD Feb 17, 2024 13:35
--- NOTE | 2024-02-17 13:38 | DVHPN2 ---
Eyes: No Pain, No Vision change, No Conjunctivae inflammation, No Eyelid inflammation, No Other, No Redness ENT: No Ear pain, No Ear discharge, No Nose pain, No Nose discharge, No Nose congestion, No Mouth pain, No Mouth swelling, No Throat pain, No Throat swelling, No Other Cardiovascular: No Chest Pain, No Palpitations, No Orthopnea, No Paroxysmal Noc. Dyspnea, No Edema, No Lt Headedness; Other (Dizziness) Respiratory: No Cough, No Dry, No Shortness of breath, No SOB with excertion, No Wheezing, No Hemoptysis, No Pleuritic Pain, No Sputum, No Other Gastrointestinal: No Nausea, No Vomiting, No Abdominal Pain, No Diarrhea, No Constipation, No Melena, No Hematochezia, No Other Genitourinary: No Dysuria, No Frequency, No Incontinence, No Hematuria, No Retention, No Other Musculoskeletal: No other, No neck pain, No shoulder pain, No arm pain, No back pain, No hand pain, No leg pain, No foot pain Skin: No Rash, No Lesions, No Jaundice, No Bruising, No Other Objective Vitals Vital Signs Date Time Temp Pulse Resp B/P (MAP) Pulse Ox O2 Delivery O2 Flow Rate FiO2 02/17/24 09:00 96.8 56 95 99/61 (74) 95 96.8 02/16/24 08:00 Room Air* 0 21 Intake/Output Intake and Output 02/17/24 07:00 Intake Total 1975 ml Output Total 700 ml Balance 1275 ml Intake Oral 1925 ml IV Total 50 ml Output Urine Total 700 ml # Voids 2 Medications Current Medications Medications Dose Ordered Sig/Amos Route Start Time Stop Time Status Last Admin Dose Admin Ondansetron HCl 4 mg Q4HP PRN IV 02/15/24 12:45 Meclizine HCl 12.5 mg [id number] PRN PO 02/15/24 12:45 Ceftriaxone Sodium 50 ml @ 100 mls/hr DAILY@09 IV 02/15/24 13:30 02/16/24 08:41 100 MLS/HR Thyroid 30 mg QAM PO 02/16/24 07:00 02/17/24 06:45 30 MG Enoxaparin Sodium 40 mg DAILY@1800 SC 02/15/24 18:00 02/16/24 17:51 40 MG Hydralazine HCl 10 mg Q6HP PRN IV 02/15/24 17:00 Laboratory Results Laboratory Tests 02/16/24 06:39 Urinalysis Test 02/15/24 07:52 Urine Color Light-orange (Yellow) Urine Clarity Turbid (Clear) H Urine pH 5.5 (5.0-9.0) Urine Specific [place] 1.017 (1.001-1.035) Urine Protein Trace (Negative) H Urine Ketones Negative (Negative) Urine Blood Negative /uL (Negative) Urine Nitrite 2+ (Negative) H Urine Bilirubin Negative (Negative) Urine Urobilinogen Normal mg/dL (Negative) Urine Leukocyte Esterase 3+ /uL (Negative) Urine RBC 4 /hpf (0 - 4) Urine WBC 85 /hpf (0 - 5) Urine Squamous Epithelial Cells Many /hpf (<5) Urine Bacteria Few /hpf (None Seen) H Urine Mucus Few (None Seen) Urine Glucose Normal mg/dL (Normal) LUIS LIMON MD Feb 17, 2024 13:37
[2024-02-17] MEDS: THYROID 60 MG TAB PO SCH (13:45)
[2024-02-18] VITALS (9 sets, daily range): BP systolic 127–148; BP diastolic 53–71; PULSE 52–60; RESP 17–20; TEMP 36.8; O2SAT 97–100
[2024-02-18] MEDS: THYROID 60 MG TAB PO SCH (07:30)
[2024-02-18 07:31] LABS: Basophils # (auto) 0 10 ^3/uL (0-0.2); Eosinophils # (auto) 0 10 ^3/uL (0-0.8); Hemoglobin 10.2 g/dL (12.2-16.2); Lymphocytes # (auto) 1.2 10 ^3/uL (0.4-5.4); Monocytes # (auto) 0.3 10 ^3/uL (0-1.3); Monocytes % (auto) 7.2 % (0.0-12.0); Neutrophils # (auto) 2.7 10 ^3/uL (1.6-8.6); White Blood Cell 4.2 10^3/uL (4.4-10.8)
[2024-02-18 07:35] LABS: Basophils % (auto) 0.4 % (0.0-2.0); Hematocrit 34.3 % (36.0-46.0); Lymphocytes % (auto) 28.8 % (10.0-50.0); Mean Corpuscular Hemoglobin 20.5 pg (28.0-32.0); Mean Corpuscular Hgb Conc. 29.9 g/dL (32.0-36.0); Mean Corpuscular Volume 68.6 fL (80.0-100.0); Neutrophils % (auto) 63.6 % (37.0-80.0); Nucleated Red Blood Cells % 0.1 %; Platelet Count (auto) 364 10^3/uL (140-450)
[2024-02-18 07:53] LABS: Chloride 114 mmol/L (98-107); Potassium 4.1 mmol/L (3.5-5.1); Sodium 145 mmol/L (136-145)
[2024-02-18 07:54] LABS: Anion Gap 6 (5-15); Calcium 9.4 mg/dL (8.7-10.4); Carbon Dioxide 25 mmol/L (20-31)
[2024-02-18 07:59] LABS: BUN/Creatinine Ratio 23.9 (10.0-20.0); Blood Urea Nitrogen 17 mg/dL (9-23); Glucose 85 mg/dL (74-106)
[2024-02-18] MEDS ORDERED: THYR60TA PO (11:42)
--- NOTE | 2024-02-18 13:06 | DVHDS2 ---
Discharge Summary Date of Admission Feb 15, 2024 at 12:43 Date of Discharge: Feb 18, 2024 Admitting Diagnosis Symptomatic bradycardia Labs/Diagnostic Data: Laboratory Results Test 02/18/24 06:40 02/16/24 06:39 02/15/24 10:51 02/15/24 10:06 White Blood Count 4.2 10^3/uL (4.4-10.8) Red Blood Count 5.00 10^6/uL (4.0-5.20) Hemoglobin 10.2 g/dL (12.2-16.2) Hematocrit 34.3 % (36.0-46.0) Mean Corpuscular Volume 68.6 fL (80.0-100.0) Mean Corpuscular Hemoglobin 20.5 pg (28.0-32.0) Mean Corpuscular Hemoglobin Concent 29.9 g/dL (32.0-36.0) Red Cell Distribution Width 20.0 % (11.8-14.3) Platelet Count 364 10^3/uL (140-450) Mean Platelet Volume 6.9 fL (6.9-10.8) Neutrophils (%) (Auto) 63.6 % (37.0-80.0) Lymphocytes (%) (Auto) 28.8 % (10.0-50.0) Monocytes (%) (Auto) 7.2 % (0.0-12.0) Eosinophils (%) (Auto) 0.0 % (0.0-7.0) Basophils (%) (Auto) 0.4 % (0.0-2.0) Neutrophils # (Auto) 2.7 10 ^3/uL (1.6-8.6) Lymphocytes # (Auto) 1.2 10 ^3/uL (0.4-5.4) Monocytes # (Auto) 0.3 10 ^3/uL (0-1.3) Eosinophils # (Auto) 0 10 ^3/uL (0-0.8) Basophils # (Auto) 0 10 ^3/uL (0-0.2) Nucleated Red Blood Cells 0.1 % Sodium Level 145 mmol/L (136-145) Potassium Level 4.1 mmol/L (3.5-5.1) Chloride Level 114 mmol/L (98-107) Carbon Dioxide Level 25 mmol/L (20-31) Anion Gap 6 (5-15) Blood Urea Nitrogen 17 mg/dL (9-23) Creatinine 0.71 mg/dL (0.550-1.02) Glomerular Filtration Rate Calc 92 mL/min (>90) BUN/Creatinine Ratio 23.9 (10.0-20.0) Serum Glucose 85 mg/dL (74-106) Calcium Level 9.4 mg/dL (8.7-10.4) Thyroid Stimulating Hormone (TSH) 6.80 uIU/mL (0.55-4.78) Free Thyroxine (T4) Calculated 0.76 ng/dL (0.89-1.76) Platelet Estimate Adequate Hypochromasia (manual) Marked Microcytosis Marked Influenza Type A Antigen Negative (Negative) Influenza Type B Antigen Negative (Negative) SARS-CoV-2 Antigen (Rapid) Negative (NEGATIVE) Urine Opiates Screen Neg (NEGATIVE) Urine Fentanyl Screen Neg (NEGATIVE) Urine Barbiturates Screen Neg (NEGATIVE) Urine Phencyclidine Screen Neg (NEGATIVE) Urine Amphetamines Screen Neg (NEGATIVE) Urine Benzodiazepines Screen Neg (NEGATIVE) Urine Cocaine Screen Neg (NEGATIVE) Urine Cannabinoids Screen Neg (NEGATIVE) Test 02/15/24 08:08 02/15/24 07:52 Hemoglobin A1c 5.1 % A1C (<5.7) Magnesium Level 2.1 mg/dL (1.6-2.6) B-Type Natriuretic Peptide 41.51 pg/mL (0-100) Triglycerides Level 91 mg/dL (< 150) Cholesterol Level 181 mg/dL (< 200) LDL Cholesterol 117 mg/dL (< 100) HDL Cholesterol 54 mg/dL (40-59) Free Triiodothyronine (T3) pg/mL 2.86 pg/mL (2.3-4.2) Urine Color Light-orange (Yellow) Urine Clarity Turbid (Clear) Urine pH 5.5 (5.0-9.0) Urine Specific [place] 1.017 (1.001-1.035) Urine Protein Trace (Negative) Urine Ketones Negative (Negative) Urine Blood Negative /uL (Negative) Urine Nitrite 2+ (Negative) Urine Bilirubin Negative (Negative) Urine Urobilinogen Normal mg/dL (Negative) Urine Leukocyte Esterase 3+ /uL (Negative) Urine RBC 4 /hpf (0 - 4) Urine WBC 85 /hpf (0 - 5) Urine Squamous Epithelial Cells Many /hpf (<5) Urine Bacteria Few /hpf (None Seen) Urine Mucus Few (None Seen) Urine Glucose Normal mg/dL (Normal) Other Laboratory Tests 02/18/24 06:40 Brief Hx & Hospital Course: History of Present Illness 69-year-old female with history of thyroid disease, gastric bypass presented to the ED via EMS for chief complaint of dizziness and blurry vision during the dizziness. Patient states since she has not been feeling well, having muscle weakness, fatigue the last 4 days she has not been moving much and today while showering she felt dizzy. Patient is a poor historian, patient states she has many allergies to antibiotics and other medications but is not able to say exactly what the reaction is, patient tends to go off on a tangent and gets distracted while talking. Patient has tolerated Rocephin previously. Patient states she has not been taking any medications. Patient states that she stopped taking her thyroid medication, ([place] thyroid), because she does not like the doctor who was prescribing them, and she also does not like taking medication. Patient states she has had bradycardia for many many years. Patient's flu and COVID were negative. Patient's urine did show she has a UTI. Patient's TSH was 20.67, restarted patient on [place] thyroid. CT head was negative. Patient denies chest pain, headache, diaphoresis, shortness of breath, abdominal pain, no nausea, vomiting, fever, or chills endorsed by the patient. Patient was admitted for further evaluation medical management. Course of hospitalization: Patient was started on [place] thyroid, titrated up to 120 mg p.o. daily, for which the patient states she was taken prior to her prescription running out. Patient was treated with IV Rocephin without any noted adverse reaction. Patient was report having allergies to every p.o. antibiotic available. The patient's bradycardia has resolved. Cardiology consultation was obtained, with them signing off after the patient having no further bradycardic episodes after correction of the patient's hypothyroidism. Patient has been ambulating with improvement of her dizziness. The patient will be discharged home he is instructed to follow up with her PCP, Dr. Keane, or choose a new PCP if she is not happy with the providers office as she has reported multiple times to both myself and staff. She will be continued on thyroid supplementation with thyroid Armor, 120 mg p.o. daily. She was also been instructed that she has received adequate antibiotic coverage while in the hospital for her mild UTI, given that she has no abdominal pain, dysuria, or urinary frequency. Physical examination General: Alert and Oriented x3. No acute distress. Well-nourished. Obese Eyes: EOMI. Anicteric. HENT: Moist mucous membranes. Lungs: Clear to auscultation bilaterally. No accessory muscle use. Cardiovascular: Regular rate and rhythm. No murmur. No JVD. Abdomen: Soft, non-tender and non-distended. No palpable masses. Extremities: No edema. Non-tender. Skin: No rashes or lesions. Warm. Neurologic: No focal neurological deficits. CN II-XII grossly intact, but not individually tested. Psychiatric: Cooperative. Appropriate mood and affect. Total time spent with patient discussing and formulating plan of care: 35 minutes. This medical document was created using an electronic medical record system with [employer] dictation system. Although this document has been carefully reviewed, there may still be some phonetic and typographical errors. These areas are purely typographical due to imperfections of the software programs, and do not reflect any compromise in the patient's medical care. Consults/Reason for consult Cardiology: Symptomatic bradycardia Condition at Discharge: Fair Final Diagnosis/Problems List Severe Hypothyriodism Secondary Diagnosis: Symptomatic bradycardia UTI Medication noncompliance Obesity Discharge Disposition: Home Discharge Instruct/Medications Diet: Regular Activity: No Restrictions, As Tolerated Follow Up/Referral: PCP in 1-2 weeks Medications: Thyroid [place] 120mg po daily 36 Discharge Statement: "Patient was advised to return to the ER or call 911 if any headaches, dizziness, shortness of breath, chest pain, abdominal pain, bleeding, fevers, or worsening of medical condition. Patient was counseled about treatment plan, medications, possible side effects, patientverbalized understanding. All questions were answered to the best of my ability. This discharge took greater then 30 minutes in planning, reviewing documentation, counseling the patient, and discussing with other team members." ASSESSMENT ASSESSMENT Assessment Severe Hypothyriodism Date of Service: Feb 18, 2024 Billing Provider: DAVID HOGAN NP Common Visit Codes: 05702-TNV/OBS DISCH DAY >30min DAVID HOGAN NP Feb 18, 2024 13:06
[2024-02-19 01:00] VITALS: BP 150/58; PULSE 50; RESP 17; TEMP 98.5; O2SAT 96
[2024-02-19 05:00] VITALS: BP 122/56; PULSE 53; RESP 17; TEMP 98; O2SAT 98
[2024-02-19 07:30] VITALS: PULSE 46; PULSE 63; RESP 18; O2SAT 99
[2024-02-19 08:00] VITALS: BP_SYST 125; BP_SYST 131; BP_DIAS 61; BP_DIAS 76; PULSE 63; O2SAT 99
[2024-02-19 09:00] VITALS: BP 164/64; PULSE 69; RESP 17; TEMP 98; O2SAT 90
== END 2024-02-19 12:00 | disposition home or self-care (01) | DRG 644 ==
LOC: EDBD 07:24 → ER 07:24 → TELE 12:43 → TELE-CENTR 14:50
PROVIDERS: ADMIT Internal Medicine; ATTEND Nurse Practitioner Acute Care
DX: E03.9 Hypothyroidism, unspecified (principal); N39.0 Urinary tract infection, site not specified; E66.01 Morbid (severe) obesity due to excess calories; R00.1 Bradycardia, unspecified; G90.9 Disorder of the autonomic nervous system, unspecified; Z20.822 Contact with and (suspected) exposure to COVID-19; I73.00 Raynaud's syndrome without gangrene; I34.1 Nonrheumatic mitral (valve) prolapse; Z91.199 Patient's noncompliance with other medical treatment and regimen due to unspecified reason; Z88.6 Allergy status to analgesic agent; Z88.1 Allergy status to other antibiotic agents; Z88.5 Allergy status to narcotic agent; Z98.84 Bariatric surgery status; Z68.34 Body mass index [BMI] 34.0-34.9, adult
CPT/HCPCS: 36415; 70450; 71045; 80048; 80061; 80307; 81001; 83036; 83735; 83880; 84439; 84443; 84481; 85025; 87426; 87804; 93005; 93306; 93886; 99291; G0378

== ENCOUNTER 2024-03-31 12:22 | Inpatient (IN) | payer OTHER ==
[~2024-03-31] VITALS: Ht 157.5 cm; Wt 96.4 kg
[~2024-03-31 12:22] MED LIST changes: -LEVO25TA45; +THYR60TA PO
--- NOTE | 2024-03-31 12:47 | ECG ---
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
--- NOTE | 2024-03-31 12:49 | ED.PDOC ---
History of Present Illness HPI Comments 69-year-old female who comes in with chief complaint of dizziness. The patient states that she is currently living in a hotel because she is waiting for her home to be remodeled. The patient denies any chest pain, nausea or vomiting. The patient was having some total body pain though since March 16 when she was stuck in an elevator in a hotel in [place]. She states that she was out with her family having breakfast and then got somewhat dizzy so the paramedics picked her up and transported her to our facility. EN route, the patient had an Accu-Chek of 102. Upon arrival, the patient was alert and in no distress. She denies any chest pain or shortness for breath. Chief Complaint: Dizziness Time Seen by MD: 12:34 Reviewed Notes: Nurses Notes, Environmental Field Office Manager Notes, Medications, Allergies (Allergies listed above) Allergies: Coded Allergies: Acetaminophen (Verified Allergy, Mild, 11/16/09) Hydrocodone (Verified Allergy, Mild, 11/16/09) Oxycodone (Verified Allergy, Mild, 11/16/09) Morphine (Verified Allergy, Unknown, 02/15/24) Home Meds Active Scripts Thyroid ([place] Thyroid) 60 Mg Tab, 2 TAB PO DAILY, #90 TAB 3 Refills Prov:DAVID HOGAN OFFENSIVE COORDINATOR 02/18/24 Reported Medications Thyroid ([place] Thyroid) 60 Mg Tab, 120 MG PO QAM, TAB 02/17/24 Information Source: Patient, Emergency Med Personnel Mode of Arrival: EMS Severity: Mild Timing: Minutes Duration: Since onset Prehospital treatment: Accucheck (102), Blindstitch Machine Operator, IVF Associated signs and symptoms No associated nausea or vomit Past Medical History PAST MEDICAL HISTORY: Thyroid Past Medical History (Other): Bradycardia Surgical History: Tonsillectomy Surgical History (Other): Gastric bypass surgery POLICE CADET History: No Pertinent POLICE CADET History, Unknown Family History Family History: Unknown Social History Smoker: Non-Smoker Alcohol: Denies ETOH Use Drugs: Denies Drug Use Lives In: Home Constitutional: reports: others (Total body pain); denies: chills, diaphoresis, fatigue, fever, malaise, sweats, weakness EENTM: denies: blurred vision, double vision, ear bleeding, ear discharge, ear drainage, ear pain, ear ringing, eye pain, eye redness, hearing loss, mouth pain, mouth swelling, nasal discharge, nose bleeding, nose congestion, nose pain, photophobia, tearing, throat pain, throat swelling, voice changes, others Respiratory: denies: cough, hemoptysis, orthopnea, SOB at rest, shortness of breath, SOB with excertion, stridor, wheezing, others Cardiovascular: denies: chest pain, dizzy spells, diaphoresis, Dyspnea on exertion, edema, irregular heart beat, left arm pain, lightheadedness, palpitations, PND, syncope, others Gastrointestinal: denies: abdomen distended, abdominal pain, blood streaked bowels, constipated, diarrhea, dysphagia, difficulty swallowing, hematemesis, melena, nausea, poor appetite, poor fluid intake, rectal bleeding, rectal pain, vomiting, others Genitourinary: denies: abnormal vagina bleeding, burning, dyspareunia, dysuria, flank pain, frequency, hematuria, incontinence, pain, , vagina discharge, urgency, others Neurological: reports: dizziness; denies: fainting, headache, left sided numbness, left sided weakness, numbness, paresthesia, pre-existing deficit, right sided numbness, right sided weakness, seizure, speech problems, tingling, tremors, weakness, others Musculoskeletal: denies: back pain, gout, joint pain, joint swelling, muscle pa in, muscle stiffness, neck pain, others Integumetry: denies: bruises, change in color, change in hair/nails, dryness, laceration, lesions, lumps, rash, wounds, others Allergic/Immunocompromised: denies: Difficulty Healing, Frequent Infections, Hives, Itching, others Hematologic/Lymphatic: denies: anemia, blood clots, easy bleeding, easy bruising, swollen glands, others Endocrine: denies: excessive hunger, excessive sweating, excessive thirst, excessive urination, flushing, intolerance to cold, intolerance to heat, unexplained weight gain, unexplained weight loss, others Psychiatric: denies: anxiety, bipolar disorder, depression, hopeless, panic disorder, schizophrenia, sleepless, suicidal, others Physical Exam General Appearance: Moderate Distress, Obese HEENT: Normal ENT Inspection, Pharynx Normal, TMs Normal Neck: Full Range of Motion, Non-Tender, Normal, Normal Inspection Respiratory: Chest Non-Tender, Lungs Clear, No Accessory Muscle Use, No Respiratory Distress, Normal Breath Sounds Cardiovascular: No Edema, No JVD, No Murmur, No Gallop, Normal Peripheral Pulses, Regular Rate/Rhythm Breast Exam: Deferred Gastrointestinal: No Organomegaly, Non Tender, No Pulsatile Mass, Normal Bowel Sounds, Soft Genitalia: Deferred Pelvic: Deferred Rectal: Deferred Extremities: No calf tenderness, Normal capillary refill, Normal inspection, Normal range of motion, Non-tender, No pedal edema Musculoskeletal : Apperance: Normal Neurologic: Alert, machine heel seat laster II-XII nml as Tested, Motor Weakness, Normal Affect, Normal Mood, No Sensory Deficits Cerebellar Function: Normal Reflexes: Normal Skin: Dry, Normal Color, Warm Lymphatic: No Adenopathy Was a procedure done? Was a procedure done?: No EKG EKG : Pulse Rate (adult): 50 [place]: LAD Cardiac Rhythm: NSR Block: None ST: Nonsp Differential Dx Considerations may include: FL, generalized weakness, electrolyte imbalance, dehydration, dizziness X-Ray, Labs, Meds, VS Vital Signs Date Time Temp Pulse Resp B/P (MAP) Pulse Ox O2 Delivery O2 Flow Rate FiO2 03/31/24 16:11 98.6 46 16 162/63 (96) 98 98.6 03/31/24 16:08 Room Air* 0 21 03/31/24 12:49 50 03/31/24 12:35 50 03/31/24 12:30 98.3 51 16 127/75 (92) 98 Lab Test 03/31/24 14:02 Range/Units White Blood Count 5.7 4.4-10.8 10^3/uL Red Blood Count 4.80 4.0-5.20 10^6/uL Hemoglobin 9.8 L 12.2-16.2 g/dL Hematocrit 32.5 L 36.0-46.0 % Mean Corpuscular Volume 67.7 L 80.0-100.0 fL Mean Corpuscular Hemoglobin 20.5 L 28.0-32.0 pg Mean Corpuscular Hemoglobin Concent 30.3 L 32.0-36.0 g/dL Red Cell Distribution Width 21.0 H 11.8-14.3 % Platelet Count 480 H 140-450 10^3/uL Mean Platelet Volume 6.8 L 6.9-10.8 fL Neutrophils (%) (Auto) 68.9 37.0-80.0 % Lymphocytes (%) (Auto) 23.4 10.0-50.0 % Monocytes (%) (Auto) 7.3 0.0-12.0 % Eosinophils (%) (Auto) 0.0 0.0-7.0 % Basophils (%) (Auto) 0.4 0.0-2.0 % Neutrophils # (Auto) 3.9 1.6-8.6 10 ^3/uL Lymphocytes # (Auto) 1.3 0.4-5.4 10 ^3/uL Monocytes # (Auto) 0.4 0-1.3 10 ^3/uL Eosinophils # (Auto) 0 0-0.8 10 ^3/uL Basophils # (Auto) 0 0-0.2 10 ^3/uL Nucleated Red Blood Cells 0.3 % Platelet Estimate Increased Hypochromasia (manual) Marked Anisocytosis (manual) Slight Microcytosis Marked Sodium Level 142 136-145 mmol/L Potassium Level 4.4 3.5-5.1 mmol/L Chloride Level 109 H 98-107 mmol/L Carbon Dioxide Level 26 20-31 mmol/L Anion Gap 7 5-15 Blood Urea Nitrogen 15 9-23 mg/dL Creatinine 0.75 0.550-1.02 mg/dL Glomerular Filtration Rate Calc 86 >90 mL/min BUN/Creatinine Ratio 20.0 10.0-20.0 Serum Glucose 95 74-106 mg/dL Calcium Level 9.4 8.7-10.4 mg/dL Thyroid Stimulating Hormone (TSH) 10.76 H 0.55-4.78 uIU/mL Current Medications Medications (Trade) Dose Ordered Sig/Amos Route Start Time Stop Time Status Last Admin Sodium Chloride 500 ml @ 500 mls/hr Q1H ONCE IV 03/31/24 12:45 03/31/24 13:44 DC 03/31/24 14:41 IV Hep-Lock was established The patient was given normal saline as a bolus of 500 cc The CBC shows anemia with a hemoglobin of 9.8 and hematocrit of 32.5 The chemistry panel is within normal limits The TSH is elevated The patient was being admitted to the hospitalist The diagnosis is autonomic dysfunction Images Reviewed?: Images reviewed and evaluated by me Time of 1ST Reevaluation: 12:48 Reevaluation 1ST: Unchanged Patient Education/Counseling: Diagnosis, Treatment, Prognosis Family Education/Counseling: No Family Present Departure 1 Departure Time of Disposition: 18:55 Impression: Primary Impression: Autonomic disorder Additional Impression: Anemia Qualified Codes: D64.9 - Anemia, unspecified Disposition: 09 ADMITTED INPATIENT Admit to: Tele Condition: Fair Critical Care Note Critical Care Time?: No Stability Stability form required: Yes Unstable for transfer: Telemetry monitoring (Telemetry monitoring required), ED Physician Assesment (Clinical assesment) Heart Score Heart Score: Heart Score Response (Comments) Value History N/A 0 EKG N/A 0 Age N/A 0 Risk Factors N/A 0 Troponin N/A 0 Total 0 JANETH NICHOLS MD Mar 31, 2024 12:49
[2024-03-31 14:23] LABS: Basophils # (auto) 0 10 ^3/uL (0-0.2); Basophils % (auto) 0.4 % (0.0-2.0); Eosinophils # (auto) 0 10 ^3/uL (0-0.8); Hematocrit 32.5 % (36.0-46.0); Hemoglobin 9.8 g/dL (12.2-16.2); Lymphocytes # (auto) 1.3 10 ^3/uL (0.4-5.4); Lymphocytes % (auto) 23.4 % (10.0-50.0); Mean Corpuscular Hemoglobin 20.5 pg (28.0-32.0); Mean Corpuscular Hgb Conc. 30.3 g/dL (32.0-36.0); Mean Corpuscular Volume 67.7 fL (80.0-100.0); Monocytes # (auto) 0.4 10 ^3/uL (0-1.3); Monocytes % (auto) 7.3 % (0.0-12.0); Neutrophils # (auto) 3.9 10 ^3/uL (1.6-8.6); Neutrophils % (auto) 68.9 % (37.0-80.0); Nucleated Red Blood Cells % 0.3 %; Platelet Count (auto) 480 10^3/uL (140-450); White Blood Cell 5.7 10^3/uL (4.4-10.8)
[2024-03-31 14:32] LABS: Potassium 4.4 mmol/L (3.5-5.1); Sodium 142 mmol/L (136-145)
[2024-03-31 14:33] LABS: Anion Gap 7 (5-15); Calcium 9.4 mg/dL (8.7-10.4); Carbon Dioxide 26 mmol/L (20-31)
[2024-03-31 14:38] LABS: Blood Urea Nitrogen 15 mg/dL (9-23); Glucose 95 mg/dL (74-106)
[2024-03-31] MEDS: SODIUM CHLORIDE 0.9% 500 ML IV ONE (14:41)
[2024-03-31 14:51] LABS: Chloride 109 mmol/L (98-107)
[2024-03-31 15:38] LABS: Anisocytosis Slight; Hypochromia Marked; Platelet Estimate Increased
[2024-03-31] MEDS ORDERED: IBUPROFEN 600 MG TAB PO PRN (16:15)
[2024-03-31] MEDS ORDERED: ONDANSETRON HCL 4 MG/2 ML VIAL IV PRN (16:15)
[2024-03-31] MEDS ORDERED: DOCUSATE SOD 100 MG CAP PO PRN (16:15)
[2024-03-31] MEDS ORDERED: NITROGLYCERIN 0.4 MG SL TAB SL PRN (20:15)
--- NOTE | 2024-03-31 20:16 | DVHHP2 ---
History of Present Illness Reason for Visit: Autonomic disorder History of Present Illness The patient is a 69-year-old female with past medical history of thyroid disease and bradycardia who presented to [facility] ED with complaint dizziness. Patient reports symptoms progressively get worse with spinning sensation, associated weakness, getting worse that prompted this visit. Patient was seen and evaluated in the ED, laboratory data shows WBC 5.7, hemoglobin 9.8, hematocrit 32.5, platelets 480, sodium 142, potassium 4.4, BUN 15, creatinine 0.75, glucose 95, blood pressure 127/75, heart rate 51, temperature 98.3 F, O2 saturation 98% on room air. Patient states that she is currently living in a hotel awaiting for completion of her home to be remodeled. Please see medication orders section in the computer. On my assessment, patient denied chest pain, no headache, no dizziness at this moment, no diaphoresis, no shortness a breath, no nausea, no vomiting, no fever, no chills. Patient was admitted for further evaluation and medical management. Past Medical History Thyroid disease, Bradycardia Past Surgical History Tonsillectomy, Gastric bypass surgery Family History Reviewed, noncontributory to the management of this case. Past Social History The patient lives at home, denies smoking, alcohol or illicit drugs abuse. Review of Systems Constitutional: No: Fever, Chills, Sweats, Weakness, Malaise, Other Eyes: No: Pain, Vision change, Conjunctivae inflammation, Eyelid inflammation, Other, Redness ENT: No: Ear pain, Ear discharge, Nose pain, Nose discharge, Nose congestion, Mouth pain, Mouth swelling, Throat pain, Throat swelling, Other Respiratory: No: Cough, Dry, Shortness of breath, SOB with excertion, Wheezing, Hemoptysis, Pleuritic Pain, Sputum, Wheezing, Other Cardiovascular: No: Chest Pain, Palpitations, Orthopnea, Paroxysmal Noc. Dyspnea, Edema, Lt Headedness, Other Gastrointestinal: No: Nausea, Vomiting, Abdominal Pain, Diarrhea, Constipation, Melena, Hematochezia, Other Genitourinary: No Dysuria, No Frequency, No Incontinence, No Hematuria, No Retention, No Other Musculoskeletal: other (Generalized body pain); No: neck pain, shoulder pain, arm pain, back pain, hand pain, leg pain, foot pain Skin: No: Rash, Lesions, Jaundice, Bruising, Other Neurological: Other (Dizziness); No: Weakness, Numbness, Incoordination, Change in speech, Confusion, Seizures Allergies: Coded Allergies: Acetaminophen (Verified Allergy, Mild, 11/16/09) Hydrocodone (Verified Allergy, Mild, 11/16/09) Oxycodone (Verified Allergy, Mild, 11/16/09) Morphine (Verified Allergy, Unknown, 02/15/24) Medications Current Medications Medications Dose Ordered Sig/Amos Route Start Time Stop Time Status Last Admin Dose Admin Meclizine HCl 25 mg Q8HPRN PRN PO 03/31/24 16:15 Ibuprofen 600 mg Q6HP PRN PO 03/31/24 16:15 Sodium Chloride 10 ml Q8HR IV 03/31/24 22:00 Ondansetron HCl 4 mg Q4HP PRN IV 03/31/24 16:15 Docusate Sodium 100 mg BIDPRN PRN PO 03/31/24 16:15 Exam Vital Signs Vital Signs Date Time Temp Pulse Resp B/P (MAP) Pulse Ox O2 Delivery O2 Flow Rate FiO2 03/31/24 19:40 Room Air* 0 21 03/31/24 18:00 97.9 48 24 155/53 (87) 100 97.9 General Appearance: Alert, Oriented X3, Cooperative, No acute distress, Other (Generalized body pain) HEENT: Atraumatic, PERRLA, EOMI, Mucous membr. moist/pink Respiratory: Clear to auscultation, Normal air movement Cardiovascular: Regular rate, Normal S1, Normal S2, No murmurs Abdominal: Normal bowel sounds, Soft, No tenderness, No hepatospenomegaly Extremities: No clubbing, No cyanosis, No edema, Normal pulses, No tenderness/s welling Skin: No rashes, No breakdown, No significant lesion Neuro: Normal speech, Normal tone, Sensation intact, Cranial nerves 3-12 NL, Reflexes 2+, Other (Generalized weakness) Psych/Mental Status: Mental status NL, Mood NL Labs/Xrays Labs Test 03/31/24 14:02 Range/Units White Blood Count 5.7 4.4-10.8 10^3/uL Red Blood Count 4.80 4.0-5.20 10^6/uL Hemoglobin 9.8 L 12.2-16.2 g/dL Hematocrit 32.5 L 36.0-46.0 % Mean Corpuscular Volume 67.7 L 80.0-100.0 fL Mean Corpuscular Hemoglobin 20.5 L 28.0-32.0 pg Mean Corpuscular Hemoglobin Concent 30.3 L 32.0-36.0 g/dL Red Cell Distribution Width 21.0 H 11.8-14.3 % Platelet Count 480 H 140-450 10^3/uL Mean Platelet Volume 6.8 L 6.9-10.8 fL Neutrophils (%) (Auto) 68.9 37.0-80.0 % Lymphocytes (%) (Auto) 23.4 10.0-50.0 % Monocytes (%) (Auto) 7.3 0.0-12.0 % Eosinophils (%) (Auto) 0.0 0.0-7.0 % Basophils (%) (Auto) 0.4 0.0-2.0 % Neutrophils # (Auto) 3.9 1.6-8.6 10 ^3/uL Lymphocytes # (Auto) 1.3 0.4-5.4 10 ^3/uL Monocytes # (Auto) 0.4 0-1.3 10 ^3/uL Eosinophils # (Auto) 0 0-0.8 10 ^3/uL Basophils # (Auto) 0 0-0.2 10 ^3/uL Nucleated Red Blood Cells 0.3 % Platelet Estimate Increased Hypochromasia (manual) Marked Anisocytosis (manual) Slight Microcytosis Marked Sodium Level 142 136-145 mmol/L Potassium Level 4.4 3.5-5.1 mmol/L Chloride Level 109 H 98-107 mmol/L Carbon Dioxide Level 26 20-31 mmol/L Anion Gap 7 5-15 Blood Urea Nitrogen 15 9-23 mg/dL Creatinine 0.75 0.550-1.02 mg/dL Glomerular Filtration Rate Calc 86 >90 mL/min BUN/Creatinine Ratio 20.0 10.0-20.0 Serum Glucose 95 74-106 mg/dL Calcium Level 9.4 8.7-10.4 mg/dL Thyroid Stimulating Hormone (TSH) 10.76 H 0.55-4.78 uIU/mL Assessment/Plan Assessment/Plan Autonomic disorder Anemia, unspecified Acute generalized body pain Plan 1. Admit to med surge unit 2. Breathing treatment 3. Pain control management 4. Management of fluids and electrolytes 5. Consultation for hospitalist 6. Diagnostic tests chest x-ray 7. DVT prophylaxis-on SCDs 8. Repeat labs CBC, CMP in a.m. 9. Continue with current medical management 10. Treatment plan discussed with patient and RN. Patient verbalized understanding. Plan discussed with: Patient, Other (RN) My Orders Orders - RAF CHAMBERS DNP Procedure Category Date Status Time Type And Screen BBK 03/31/24 In Process 16:02 Meclizine Tablet PHA 03/31/24 In Process (Antivert Tablet) 16:15 Ibuprofen Tablet PHA 03/31/24 In Process (Motrin Tablet) 16:15 Allergies DOMINIC 03/31/24 In Process 16:02 Code Status CODE 03/31/24 Transmitted 16:02 Sodium Chloride Lock PHA 03/31/24 In Process (Saline Lock Ns) 22:00 Oxygen Per Hour RT 03/31/24 Transmitted 16:02 Ondansetron Hcl PHA 03/31/24 In Process (Zofran) 16:15 Docusate Sodium PHA 03/31/24 In Process Capsule (Colace 16:15 Complete Blood Count LAB 04/01/24 Verified 04:00 Comprehensive LAB 04/01/24 Verified Metabolic Panel 04:00 Cardiac DIET 03/31/24 Transmitted Diet-2gna,Lofat,Lochol Dinner Condition: Fair DOMINIC 03/31/24 In Process 16:02 Bedrest With Bathroom DOMINIC 03/31/24 In Process Privileg 16:02 Sequential DOMINIC 03/31/24 In Process Compression Device Problem List: (1) Autonomic disorder (2) Anemia, unspecified (3) Acute generalized body pain Date of Service: Mar 31, 2024 Billing Provider: RAF CHAMBERS DNP Common Visit Codes: [id number] INP/OBS CARE (HIGH) RAF CHAMBERS DNP Mar 31, 2024 20:16
[2024-03-31 22:29] VITALS: BP 129/99; PULSE 64; RESP 16; TEMP 97.6; O2SAT 98
[2024-03-31] MEDS: SODIUM CHLOR 0.9% PF (SALINE LOCK) 10ML VIAL/SYR IV SCH (22:46)
[2024-04-01 05:00] VITALS: BP 137/62; PULSE 54; RESP 13; TEMP 98.3; O2SAT 95
[2024-04-01] MEDS: SODIUM CHLORIDE 0.9% 1,000 ML IV SCH (06:00)
[2024-04-01 06:19] LABS: Albumin 3.6 g/dL (3.2-4.8); Anion Gap 10 (5-15); BUN/Creatinine Ratio 15.2 (10.0-20.0); Blood Urea Nitrogen 10 mg/dL (9-23); Carbon Dioxide 20 mmol/L (20-31); Glucose 83 mg/dL (74-106); Potassium 4.3 mmol/L (3.5-5.1); Sodium 141 mmol/L (136-145)
[2024-04-01 06:20] LABS: Bilirubin, Total 0.3 mg/dL (0.2-1.0); Total Protein 5.8 g/dL (5.7-8.2)
[2024-04-01 06:31] LABS: Alanine Aminotransferase < 9 U/L (7-40); Alkaline Phosphatase 134 U/L (46-116); Aspartate Aminotransferase 13 U/L (13-40); Chloride 111 mmol/L (98-107)
[2024-04-01 08:33] VITALS: BP 149/105; PULSE 49; RESP 16; TEMP 97.7; O2SAT 97
[2024-04-01 10:47] LABS: Basophils # (auto) 0 10 ^3/uL (0-0.2); Eosinophils # (auto) 0 10 ^3/uL (0-0.8); Lymphocytes # (auto) 0.9 10 ^3/uL (0.4-5.4); Monocytes # (auto) 0.3 10 ^3/uL (0-1.3); Neutrophils # (auto) 2.8 10 ^3/uL (1.6-8.6); Nucleated Red Blood Cells % 0.1 %
[2024-04-01 10:48] LABS: Basophils % (auto) 0.3 % (0.0-2.0); Hematocrit 30.2 % (36.0-46.0); Mean Corpuscular Hemoglobin 20.1 pg (28.0-32.0); Mean Corpuscular Hgb Conc. 29.7 g/dL (32.0-36.0); Mean Corpuscular Volume 67.5 fL (80.0-100.0); Neutrophils % (auto) 70.7 % (37.0-80.0); Platelet Count (auto) 466 10^3/uL (140-450); Red Blood Cells 4.48 10^6/uL (4.0-5.20); Red Cell Distribution Width 20.7 % (11.8-14.3)
[2024-04-01 11:25] VITALS: BP 153/60; PULSE 49
--- NOTE | 2024-04-01 12:10 | DVHPN2 ---
Reviewed: Care Plan, H&P, Labs, Medications, Previous Orders, Radiology Changes from previous H/P or p: No Changes Eyes: No Pain, No Vision change, No Conjunctivae inflammation, No Eyelid inflammation, No Other, No Redness ENT: No Ear pain, No Ear discharge, No Nose pain, No Nose discharge, No Nose congestion, No Mouth pain, No Mouth swelling, No Throat pain, No Throat swelling, No Other Cardiovascular: No Chest Pain, No Palpitations, No Orthopnea, No Paroxysmal Noc. Dyspnea, No Edema, No Lt Headedness, No Other Respiratory: No Cough, No Dry, No Shortness of breath, No SOB with excertion, No Wheezing, No Hemoptysis, No Pleuritic Pain, No Sputum, No Other Gastrointestinal: No Nausea, No Vomiting, No Abdominal Pain, No Diarrhea, No Constipation, No Melena, No Hematochezia, No Other Genitourinary: No Dysuria, No Frequency, No Incontinence, No Hematuria, No Retention, No Other Musculoskeletal: other (Generalized body pain); No neck pain, No shoulder pain, No arm pain, No back pain, No hand pain, No leg pain, No foot pain Skin: No Rash, No Lesions, No Jaundice, No Bruising, No Other Objective Vitals Vital Signs Date Time Temp Pulse Resp B/P (MAP) Pulse Ox O2 Delivery O2 Flow Rate FiO2 04/01/24 11:25 49 153/60 (91) 04/01/24 08:33 97.7 16 97 97.7 04/01/24 08:00 Room Air* 0 21 Intake/Output Intake and Output 04/01/24 07:00 Intake Total 600 ml Output Total 0 ml Balance 600 ml Intake Oral 100 ml IV Total 500 ml Output Stool Total 0 ml # Voids 1 Medications Current Medications Medications Dose Ordered Sig/Amos Route Start Time Stop Time Status Last Admin Dose Admin Meclizine HCl 25 mg Q8HPRN PRN PO 03/31/24 16:15 Ibuprofen 600 mg Q6HP PRN PO 03/31/24 16:15 Sodium Chloride 10 ml Q8HR IV 03/31/24 22:00 04/01/24 06:02 10 ML Ondansetron HCl 4 mg Q4HP PRN IV 03/31/24 16:15 Docusate Sodium 100 mg BIDPRN PRN PO 03/31/24 16:15 Nitroglycerin 0.4 mg Q5MINP PRN SL 03/31/24 20:15 Laboratory Results Laboratory Tests 04/01/24 05:02 04/01/24 09:57 Chemistry Test 03/31/24 14:02 04/01/24 05:02 Calcium Level 9.4 mg/dL (8.7-10.4) 9.0 mg/dL (8.7-10.4) Albumin 3.6 g/dL (3.2-4.8) Total Protein 5.8 g/dL (5.7-8.2) LFT Test 04/01/24 05:02 Alanine Aminotransferase (ALT) < 9 U/L (7-40) Alkaline Phosphatase 134 U/L (46-116) H Aspartate Amino Transferase (AST) 13 U/L (13-40) Total Bilirubin 0.3 mg/dL (0.2-1.0) HgA1c, TSH Test 03/31/24 14:02 Thyroid Stimulating Hormone (TSH) 10.76 uIU/mL (0.55-4.78) H Labs and/or images reviewed: Labs reviewed by me, Image(s) reviewed by me Assessment/Plan Assessment/Plan Severe Hypothyroidism TSH 10.76 : Synthroid Symptomatic bradycardia Recurrent UTI: We will check UA Medication noncompliance Obesity Dizziness: Meclizine Extensive workup for dizziness done on previous visit neg including carotid ultrasound and CT head Plan discussed with: Patient Date of Service: Apr 01, 2024 Billing Provider: NAPOLEON WYNNE MD Common Visit Codes: [id number] INP/OBS CARE(HIGH) NAPOLEON WYNNE MD Apr 01, 2024 12:10
[2024-04-01 13:00] VITALS: BP 148/57; PULSE 53; RESP 20; TEMP 97.9; O2SAT 98
[2024-04-01] MEDS: MECLIZINE HCL 25 MG TAB PO PRN (14:21)
--- NOTE | 2024-04-01 15:48 | DVH ---
CT ABDOMEN AND PELVIS WITHOUT CONTRAST CLINICAL HISTORY: abdominal pain TECHNIQUE: Multiple contiguous axial images of the abdomen and pelvis without intravenous contrast. The images were reformatted degenerate coronal and sagittal reconstructions. All CT scans at this medical facility are performed using dose modulation techniques as appropriate t o a performed exam including the following:Automated exposure control was utilized; adjustment of the MA and/or KV according to patient size; and use of iterative reconstruction technique. Radiation Dose Information: CT Dose: CTDI volume is 25 mGy. Dose-length product is 1381 mGy*cm Comparison: None FINDINGS: Evaluation of the abdomen and pelvis is limited without intravenous contrast. There are bilateral renal, largest in the right lower pole measuring 2.0 cm. There is no evidence of nephrolithiasis or hydronephrosis. The liver, gallbladder, pancreas, adrenal glands, and spleen appear within normal limits. There is no gross evidence of abdominal lymphadenopathy. There is no free fluid or free air. There are gastric postsurgical changes likely related bypass surgery. There is small hiatal hernia. The small and large bowel loops demonstrate normal caliber. The abdominal aorta and IVC appear within normal limits. The bladder appears unremarkable for the degree of distention. Pelvic organ appears within normal goncalves its. There is no gross evidence of a pelvic mass. There is no free fluid collection. There are several small left lower lobe pulmonary nodules measuring up 5 mm. The right lung base is c lear. There is no acute osseous abnormality. IMPRESSION: 1. There is no acute process in the abdomen and pelvis. 2. Several nonspecific left lower lobe pulmonary nodules measuring up to 5 mm. Further evaluation wit h dedicated CT chest is recommended. 3. Gastric postsurgical changes with small hiatal hernia. HS:Y
[2024-04-01 16:30] VITALS: BP 109/58; PULSE 55; RESP 20; TEMP 97.8; O2SAT 100
[2024-04-01 21:00] VITALS: BP 130/64; PULSE 61; RESP 17; TEMP 98.5; O2SAT 98
[2024-04-02] VITALS (7 sets, daily range): BP systolic 113–151; BP diastolic 51–65; PULSE 46–68; RESP 17–20; TEMP 97.4–98.4; O2SAT 96–99
[2024-04-02 00:16] LABS: Urine Bacteria FEW /hpf (None Seen); Urine Blood Negative /uL (Negative); Urine Clarity Clear (Clear); Urine Color Light-Yellow (Yellow); Urine Protein, UAD Negative (Negative); Urine Specific Gravity 1.012 (1.001-1.035); Urine Squamous Epithelial Cell FEW /hpf (<5); Urine Urobilinogen Normal (Negative); Urine WBC 5 /hpf (0 - 5); Urine pH 5.5 (5.0-9.0)
[2024-04-02] MEDS ORDERED: MECL12.586 PO (10:37)
--- NOTE | 2024-04-02 10:39 | DVHPN2 ---
Reviewed: Care Plan, H&P, Labs, Medications, Previous Orders, Radiology Changes from previous H/P or p: No Changes Eyes: No Pain, No Vision change, No Conjunctivae inflammation, No Eyelid inflammation, No Other, No Redness ENT: No Ear pain, No Ear discharge, No Nose pain, No Nose discharge, No Nose congestion, No Mouth pain, No Mouth swelling, No Throat pain, No Throat swelling, No Other Cardiovascular: No Chest Pain, No Palpitations, No Orthopnea, No Paroxysmal Noc. Dyspnea, No Edema, No Lt Headedness, No Other Respiratory: No Cough, No Dry, No Shortness of breath, No SOB with excertion, No Wheezing, No Hemoptysis, No Pleuritic Pain, No Sputum, No Other Gastrointestinal: No Nausea, No Vomiting, No Abdominal Pain, No Diarrhea, No Constipation, No Melena, No Hematochezia, No Other Genitourinary: No Dysuria, No Frequency, No Incontinence, No Hematuria, No Retention, No Other Musculoskeletal: other (Generalized body pain); No neck pain, No shoulder pain, No arm pain, No back pain, No hand pain, No leg pain, No foot pain Skin: No Rash, No Lesions, No Jaundice, No Bruising, No Other Objective Vitals Vital Signs Date Time Temp Pulse Resp B/P (MAP) Pulse Ox O2 Delivery O2 Flow Rate FiO2 04/02/24 08:42 97.4 46 20 151/52 (85) 97 97.4 04/01/24 20:00 Room Air* 0 21 Intake/Output Intake and Output 04/02/24 07:00 Intake Total 2306.25 ml Balance 2306.25 ml Intake Oral 1500 ml IV Total 806.25 ml # Voids 4 # Bowel Movements 1 Medications Current Medications Medications Dose Ordered Sig/Amos Route Start Time Stop Time Status Last Admin Dose Admin Meclizine HCl 25 mg Q8HPRN PRN PO 03/31/24 16:15 04/01/24 14:21 25 MG Ibuprofen 600 mg Q6HP PRN PO 03/31/24 16:15 Sodium Chloride 10 ml Q8HR IV 03/31/24 22:00 04/02/24 05:44 10 ML Ondansetron HCl 4 mg Q4HP PRN IV 03/31/24 16:15 Docusate Sodium 100 mg BIDPRN PRN PO 03/31/24 16:15 Nitroglycerin 0.4 mg Q5MINP PRN SL 03/31/24 20:15 Sodium Chloride 1,000 ml @ 125 mls/hr Q8H IV 04/01/24 12:30 04/01/24 06:00 125 MLS/HR Laboratory Results Laboratory Tests 04/01/24 05:02 04/01/24 09:57 Urinalysis Test 04/01/24 23:00 Urine Color Light-yellow (Yellow) Urine Clarity Clear (Clear) Urine pH 5.5 (5.0-9.0) Urine Specific [place] 1.012 (1.001-1.035) Urine Protein Negative (Negative) Urine Ketones Negative (Negative) Urine Blood Negative /uL (Negative) Urine Nitrite 2+ (Negative) H Urine Bilirubin Negative (Negative) Urine Urobilinogen Normal mg/dL (Negative) Urine Leukocyte Esterase Negative /uL (Negative) Urine RBC <1 /hpf (0 - 4) Urine WBC 5 /hpf (0 - 5) Urine Squamous Epithelial Cells Few /hpf (<5) Urine Bacteria Few /hpf (None Seen) H Urine Glucose Normal mg/dL (Normal) Labs and/or images reviewed: Labs reviewed by me, Image(s) reviewed by me Assessment/Plan Assessment/Plan Severe Hypothyroidism TSH 10.76 : Synthroid Symptomatic bradycardia: Cardiology consult Recurrent UTI: Urinalysis negative for infection Medication noncompliance Obesity Dizziness: Meclizine Extensive workup for dizziness done on previous visit neg including carotid ultrasound and CT head Discharged from this hospital on 02/18/2024 for the same complaint Plan discussed with: Patient My Orders Orders - NAPOLEON WYNNE MD Procedure Category Date Status Time Urine Bacterial ADEBAYO 04/01/24 In Process Culture 12:13 Ct Ab Pel Wo Con-No CT 04/01/24 Resulted Oral Or Iv 12:27 Sodium Chloride 0.9% PHA 04/01/24 In Process 12:30 Regular Diet DIET 04/01/24 Transmitted Lunch Date of Service: Apr 02, 2024 Billing Provider: NAPOLEON WYNNE MD Common Visit Codes: [id number] INP/OBS CARE(HIGH) NAPOLEON WYNNE MD Apr 02, 2024 10:39
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
[2024-04-03] VITALS (7 sets, daily range): BP systolic 103–133; BP diastolic 52–61; PULSE 52–98; RESP 18–20; TEMP 98.2–98.7; O2SAT 96–100
--- NOTE | 2024-04-03 11:22 | DVHPN2 ---
Reviewed: Care Plan, H&P, Labs, Medications, Previous Orders, Radiology Changes from previous H/P or p: No Changes Eyes: No Pain, No Vision change, No Conjunctivae inflammation, No Eyelid inflammation, No Other, No Redness ENT: No Ear pain, No Ear discharge, No Nose pain, No Nose discharge, No Nose congestion, No Mouth pain, No Mouth swelling, No Throat pain, No Throat swelling, No Other Cardiovascular: No Chest Pain, No Palpitations, No Orthopnea, No Paroxysmal Noc. Dyspnea, No Edema, No Lt Headedness, No Other Respiratory: No Cough, No Dry, No Shortness of breath, No SOB with excertion, No Wheezing, No Hemoptysis, No Pleuritic Pain, No Sputum, No Other Gastrointestinal: No Nausea, No Vomiting, No Abdominal Pain, No Diarrhea, No Constipation, No Melena, No Hematochezia, No Other Genitourinary: No Dysuria, No Frequency, No Incontinence, No Hematuria, No Retention, No Other Musculoskeletal: other (Generalized body pain); No neck pain, No shoulder pain, No arm pain, No back pain, No hand pain, No leg pain, No foot pain Skin: No Rash, No Lesions, No Jaundice, No Bruising, No Other Objective Vitals Vital Signs Date Time Temp Pulse Resp B/P (MAP) Pulse Ox O2 Delivery O2 Flow Rate FiO2 04/03/24 08:47 98.7 52 20 133/58 (83) 100 98.7 04/03/24 08:05 Room Air* 0 21 Intake/Output Intake and Output 04/03/24 07:00 Intake Total 900 ml Output Total 500 ml Balance 400 ml Intake Oral 900 ml Output Urine Total 500 ml # Voids 4 # Bowel Movements 3 Medications Current Medications Medications Dose Ordered Sig/Amos Route Start Time Stop Time Status Last Admin Dose Admin Meclizine HCl 25 mg Q8HPRN PRN PO 03/31/24 16:15 04/01/24 14:21 25 MG Ibuprofen 600 mg Q6HP PRN PO 03/31/24 16:15 Sodium Chloride 10 ml Q8HR IV 03/31/24 22:00 04/03/24 05:05 10 ML Ondansetron HCl 4 mg Q4HP PRN IV 03/31/24 16:15 Docusate Sodium 100 mg BIDPRN PRN PO 03/31/24 16:15 Nitroglycerin 0.4 mg Q5MINP PRN SL 03/31/24 20:15 Sodium Chloride 1,000 ml @ 125 mls/hr Q8H IV 04/01/24 12:30 04/02/24 12:30 125 MLS/HR Laboratory Results Laboratory Tests 04/01/24 05:02 04/01/24 09:57 Urinalysis Test 04/01/24 23:00 Urine Color Light-yellow (Yellow) Urine Clarity Clear (Clear) Urine pH 5.5 (5.0-9.0) Urine Specific [place] 1.012 (1.001-1.035) Urine Protein Negative (Negative) Urine Ketones Negative (Negative) Urine Blood Negative /uL (Negative) Urine Nitrite 2+ (Negative) H Urine Bilirubin Negative (Negative) Urine Urobilinogen Normal mg/dL (Negative) Urine Leukocyte Esterase Negative /uL (Negative) Urine RBC <1 /hpf (0 - 4) Urine WBC 5 /hpf (0 - 5) Urine Squamous Epithelial Cells Few /hpf (<5) Urine Bacteria Few /hpf (None Seen) H Urine Glucose Normal mg/dL (Normal) Microbiology Microbiology Date/Time Source Procedure Growth Status 04/01/24 23:00 Voided Urine Urine Culture - Preliminary Resulted Labs and/or images reviewed: Labs reviewed by me, Image(s) reviewed by me Assessment/Plan Assessment/Plan Severe Hypothyroidism TSH 10.76 : Patient is use [place] thyroid which probably is not working well. Patient Refuses to change the medication Symptomatic bradycardia: Cardiology consult appreciated, no further cardiac workup Recurrent UTI: Urinalysis negative for infection Medication noncompliance Obesity Dizziness: Meclizine Extensive workup for dizziness done on previous visit neg including carotid ultrasound and CT head Discharged from this hospital on 02/18/2024 for the same complaint Plan discussed with: Patient Date of Service: Apr 03, 2024 Billing Provider: NAPOLEON WYNNE MD Common Visit Codes: [id number] INP/OBS CARE(HIGH) NAPOLEON WYNNE MD Apr 03, 2024 11:22
--- NOTE | 2024-04-03 11:22 | DVHPN2 ---
Consult Progress Note Subjective Other Systems: Patient in his sinus bradycardia on alarm security or surveillance monitor. Objective vital signs Vital Sign Date Time Temp Pulse Resp B/P (MAP) Pulse Ox O2 Delivery O2 Flow Rate FiO2 04/03/24 08:47 98.7 52 20 133/58 (83) 100 98.7 04/03/24 08:05 Room Air* 0 21 Total Intake and Output 04/02/24 04/02/24 04/03/24 15:00 23:00 07:00 Intake Total 300 ml 600 ml Output Total 500 ml Balance 300 ml 100 ml medications Current Medications Medications Dose Ordered Sig/Amos Route Start Time Stop Time Status Last Admin Dose Admin Meclizine HCl 25 mg Q8HPRN PRN PO 03/31/24 16:15 04/01/24 14:21 25 MG Ibuprofen 600 mg Q6HP PRN PO 03/31/24 16:15 Sodium Chloride 10 ml Q8HR IV 03/31/24 22:00 04/03/24 05:05 10 ML Ondansetron HCl 4 mg Q4HP PRN IV 03/31/24 16:15 Docusate Sodium 100 mg BIDPRN PRN PO 03/31/24 16:15 Nitroglycerin 0.4 mg Q5MINP PRN SL 03/31/24 20:15 Sodium Chloride 1,000 ml @ 125 mls/hr Q8H IV 04/01/24 12:30 04/02/24 12:30 125 MLS/HR Examination: GENERAL:Normal, LUNGS:Normal, CVS:Normal, NEURO:Normal laboratory and microbiology Laboratory Tests 04/01/24 09:57 04/01/24 05:02 Test 04/01/24 05:02 Range/Units Serum Glucose 83 74-106 mg/dL Problem List/Assessment/Plan Problem List/Assessment/Plan Chronic asymptomatic bradycardia Hypothyroidism Medical noncompliance Suboptimal medical therapy Morbid obesity Plan/Recommendation (Dr. Haley): Transthoracic echocardiogram from 02/16/2024 reveals an EF of 55%. Patient comes in with bradycardia, no significant pauses or AV blocks noted on alarm security or surveillance monitor. Patient also noted to have elevated TSH level. Patient educated on importance of continuing thyroid medication as prescribed. Bradycardia likely secondary to uncontrolled hypothyroidism. There is no further inpatient cardiac workup indicated at this time. Thank you for allowing us to care for this patient. Please call with any questions or concerns. Case reviewed and discussed with Dr. Haley. Thank you for allowing us to care for this patient. Please call with any questions or concerns. This medical document was created using an electronic medical record system with voice recognition software and computerized dictation system. Although this document has been carefully reviewed, there might still be some phonetic and typographical errors. Occasional wrong-word or ``sound-alike substitutions may have occurred due to the inherent limitations of voice recognition software. These areas are purely typographical due to imperfections of the software programs and do not reflect any compromise in the patient's medical care. Please read the chart carefully and recognize, using context, where these substitutions have occurred. Plan discussed with: Patient Date of Service: Apr 03, 2024 Billing Provider: MARCELINO HALEY MD Common Visit Codes: [id number] INP/OBS CARE(HIGH) PAWEL SOTO [facility] Apr 03, 2024 11:22
--- NOTE | 2024-04-03 11:26 | DVHDS2 ---
Discharge Summary Date of Admission Mar 31, 2024 at 20:13 Date of Discharge: Apr 03, 2024 Admitting Diagnosis Dizziness Wounds: none Labs/Diagnostic Data: Laboratory Results Test 04/01/24 23:00 04/01/24 09:57 04/01/24 05:02 03/31/24 14:02 Urine Color Light-yellow (Yellow) Urine Clarity Clear (Clear) Urine pH 5.5 (5.0-9.0) Urine Specific [place] 1.012 (1.001-1.035) Urine Protein Negative (Negative) Urine Ketones Negative (Negative) Urine Blood Negative /uL (Negative) Urine Nitrite 2+ (Negative) Urine Bilirubin Negative (Negative) Urine Urobilinogen Normal mg/dL (Negative) Urine Leukocyte Esterase Negative /uL (Negative) Urine RBC <1 /hpf (0 - 4) Urine WBC 5 /hpf (0 - 5) Urine Squamous Epithelial Cells Few /hpf (<5) Urine Bacteria Few /hpf (None Seen) Urine Glucose Normal mg/dL (Normal) White Blood Count 4.0 10^3/uL (4.4-10.8) Red Blood Count 4.48 10^6/uL (4.0-5.20) Hemoglobin 9.0 g/dL (12.2-16.2) Hematocrit 30.2 % (36.0-46.0) Mean Corpuscular Volume 67.5 fL (80.0-100.0) Mean Corpuscular Hemoglobin 20.1 pg (28.0-32.0) Mean Corpuscular Hemoglobin Concent 29.7 g/dL (32.0-36.0) Red Cell Distribution Width 20.7 % (11.8-14.3) Platelet Count 466 10^3/uL (140-450) Mean Platelet Volume 7.1 fL (6.9-10.8) Neutrophils (%) (Auto) 70.7 % (37.0-80.0) Lymphocytes (%) (Auto) 22.0 % (10.0-50.0) Monocytes (%) (Auto) 7.0 % (0.0-12.0) Eosinophils (%) (Auto) 0.0 % (0.0-7.0) Basophils (%) (Auto) 0.3 % (0.0-2.0) Neutrophils # (Auto) 2.8 10 ^3/uL (1.6-8.6) Lymphocytes # (Auto) 0.9 10 ^3/uL (0.4-5.4) Monocytes # (Auto) 0.3 10 ^3/uL (0-1.3) Eosinophils # (Auto) 0 10 ^3/uL (0-0.8) Basophils # (Auto) 0 10 ^3/uL (0-0.2) Nucleated Red Blood Cells 0.1 % Sodium Level 141 mmol/L (136-145) Potassium Level 4.3 mmol/L (3.5-5.1) Chloride Level 111 mmol/L (98-107) Carbon Dioxide Level 20 mmol/L (20-31) Anion Gap 10 (5-15) Blood Urea Nitrogen 10 mg/dL (9-23) Creatinine 0.66 mg/dL (0.550-1.02) Glomerular Filtration Rate Calc 95 mL/min (>90) BUN/Creatinine Ratio 15.2 (10.0-20.0) Serum Glucose 83 mg/dL (74-106) Calcium Level 9.0 mg/dL (8.7-10.4) Total Bilirubin 0.3 mg/dL (0.2-1.0) Aspartate Amino Transferase (AST) 13 U/L (13-40) Alanine Aminotransferase (ALT) < 9 U/L (7-40) Alkaline Phosphatase 134 U/L (46-116) Total Protein 5.8 g/dL (5.7-8.2) Albumin 3.6 g/dL (3.2-4.8) Platelet Estimate Increased Hypochromasia (manual) Marked Anisocytosis (manual) Slight Microcytosis Marked Thyroid Stimulating Hormone (TSH) 10.76 uIU/mL (0.55-4.78) Other Laboratory Tests 04/01/24 09:57 04/01/24 05:02 Brief Hx & Hospital Course: 69-year-old female came in for dizziness. TSH 10.76 patient uses [place] thyroid and she refused to change medication to Synthroid saying that she has an allergy. She also was bradycardic in the range of [address] Scott. 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 Scott Operations or Procedures Echocardiogram Carotid ultrasound Condition at Discharge: Fair Final Diagnosis/Problems List Severe Hypothyroidism TSH 10.76 : Patient is use [place] thyroid which probably is not working well. Patient Refuses to change the medication Symptomatic bradycardia: Cardiology consult appreciated, no further cardiac workup Recurrent UTI: Urinalysis negative for infection Medication noncompliance Obesity Dizziness: Meclizine Extensive workup for dizziness done on previous visit neg including carotid ultrasound and CT head Discharged from this hospital on 02/18/2024 for the same complaint Discharge Disposition: Home Discharge Instruct/Medications Diet: Cardiac 2g Na,low cholest Activity: Light activity Follow Up/Referral: Follow With the laundrette owner as an outpatient for change of your thyroid medication Follow up with the ear nose throat Dr for your chronic dizziness Medications: Antivert Transmitted to the pharmacy 36 (Time taken for discharge summary 36 minutes) Discharge Statement: "Patient was advised to return to the ER or call 911 if any headaches, dizziness, shortness of breath, chest pain, abdominal pain, bleeding, fevers, or worsening of medical condition. Patient was counseled about treatment plan, medications, possible side effects, patientverbalized understanding. All questions were answered to the best of my ability. This discharge took greater then 30 minutes in planning, reviewing documentation, counseling the patient, and discussing with other team members." ASSESSMENT ASSESSMENT Hospital Course Uneventful Assessment Severe Hypothyroidism TSH 10.76 : Patient is use [place] thyroid which probably is not working well. Patient Refuses to change the medication Symptomatic bradycardia: Cardiology consult appreciated, no further cardiac workup Recurrent UTI: Urinalysis negative for infection Medication noncompliance Obesity Dizziness: Meclizine Extensive workup for dizziness done on previous visit neg including carotid ultrasound and CT head Discharged from this hospital on 02/18/2024 for the same complaint Date of Service: Apr 03, 2024 Billing Provider: NAPOLEON WYNNE MD Common Visit Codes: [id number] DISCH DAY >30min NAPOLEON WYNNE MD Apr 03, 2024 11:26
== END 2024-04-03 15:30 | disposition home or self-care (01) | DRG 74 ==
LOC: EDBD 12:22 → ER 12:22 → OVERFLOW 20:13 → WEST WING 20:15 → TELE-WESTW 04-02 14:00
PROVIDERS: ADMIT Nurse Practitioner Family; ATTEND Family Medicine
DX: G90.9 Disorder of the autonomic nervous system, unspecified (principal); N39.0 Urinary tract infection, site not specified; Z59.01 Sheltered homelessness; R00.1 Bradycardia, unspecified; D64.9 Anemia, unspecified; E03.9 Hypothyroidism, unspecified; E66.01 Morbid (severe) obesity due to excess calories; Z88.6 Allergy status to analgesic agent; Z88.5 Allergy status to narcotic agent; Z98.84 Bariatric surgery status; Z87.891 Personal history of nicotine dependence; Z91.148 Patient's other noncompliance with medication regimen for other reason; Z91.199 Patient's noncompliance with other medical treatment and regimen due to unspecified reason; Z68.34 Body mass index [BMI] 34.0-34.9, adult
CPT/HCPCS: 36415; 74176; 80048; 80053; 81001; 84443; 85025; 86850; 86900; 86901; 87086; 93005; G0378